=== PATIENT | male | born 1950 | race Caucasian/White ===

== ENCOUNTER 2021-11-29 00:15 | Day surgery (SDC) | payer MEDICARE, SELFPAY ==
[2021-11-14 13:18] VITALS: BMI 25.9
[2021-11-29 08:32] VITALS: BP 169/90; PULSE 81; RESP 18; TEMP 36.1; O2SAT 98; BMI 25.9
--- NOTE | 2021-11-29 08:36 | WPDGICN ---
Assessment and Plan Assessment and plan (1) Dysphagia: Code(s): R13.10 - Dysphagia, unspecified Status: Acute Assessment and Plan: Patient is had dysphagia his history sounds as though he had a brief food impaction. He does complain of a min heartburn suggesting underlying acid reflux. Plan is for EGD to assess more thoroughly. Possible esophageal dilatation is discussed with patient. Further recommendations will be given after endoscopy. GI Consult Note Consult date/time: 11/29/21 08:36 Reason for consult: Dysphagia HPI: Jimbo Gray is a 71 year old male presents for EGD. Patient reports that 1 month ago he was eating chicken. It became stock in the low mid substernal area of the chest. He subsequently was unable to eat or swallow. In eventually regurgitated chicken. Patient has had no prior difficulties. On further questioning does notice sometimes peanut butter sandwiches will passed slowly through this area. Patient does notice intermittent heartburn. He has taken omeprazole off and on over the last 1 year. He states this is not a constant complaint. Only occurs intermittently. Review of Systems Review of Systems: Review of systems noncontributory. [facility] Past Medical History Medical History Cervical spondylosis Coronary artery disease involving [place] coronary artery of [place] heart Dyslipidemia Elevated PSA Erectile dysfunction History of coronary stenosis Seizures Skin cancer (~2009) Surgical History Surgical History History of coronary artery stent placement 2009 History of left inguinal hernia repair 2015 Family History Family History Mother Family history of cardiac disorder Father Family history of coronary artery disease Family history of cardiovascular disease Grandparent Family history of cardiovascular disease Social History Social History Smoking status: Never smoker Alcohol intake: current Substance use: never Substance use type: does not use Living arrangements: with family Additional living arrangements comments: Gender identity (if verbalized by the patient): Male Sexual Orientation (if Verbalized by the Patient): Straight or Heterosexual Spiritual care concerns: No Meds Home Medications and Allergies Home Medications Medication Instructions Recorded Confirmed Type aspirin 81 mg capsule 81 mg PO DAILY 02/28/21 11/14/21 History atorvastatin 40 mg tablet 40 mg PO QHS #90 tabs 06/23/21 11/14/21 Rx cholecalciferol (vitamin D3) 1,250 1,250 mcg PO WEEKLY #12 caps 08/08/21 11/14/21 Rx mcg (50,000 unit) capsule levetiracetam 500 mg tablet 500 mg PO BID 10/25/21 11/14/21 History albuterol sulfate 90 mcg/actuation 2 puff inhalation Q4H PRN 10/31/21 11/14/21 Rx aerosol inhaler shortness of breath or wheezing #8.5 grams sildenafil 100 mg tablet 100 mg PO .PRN #10 tabs 11/21/21 11/29/21 Rx omeprazole 40 mg capsule,delayed 40 mg PO DAILY PRN Heartburn #30 11/22/21 11/29/21 Rx release caps Allergies Allergy/AdvReac Type Severity Reaction Status Date / Time No Known Allergies Allergy Unknown Verified 11/14/21 13:16 Vital Signs Vital Signs - 24 hr 11/29/21 08:32 Temperature 97 F L Pulse Rate 81 Respiratory Rate 18 Blood Pressure 169/90 H Pulse Oximetry 98 Oxygen Delivery Room Air Exam Narrative: Physical exam reveals patient to be alert. Vital signs stable. HEENT exam is unremarkable. Patient is anicteric. Lungs are clear to auscultation and percussion. Heart is without murmur or extra sounds. Abdominal exam bowel sounds are present soft nontender with no organomegaly.
[2021-11-29] MEDS: LACTATED RINGERS 1,000 ML 150 ML IV CONT (08:40)
--- NOTE | 2021-11-29 09:10 | WPDANESEPPF ---
Anes - Initial Pre Proc Eval Procedure: Operation Date: 11/29/21 09:30 Proposed Procedures p Esophagogastroduodenoscopy - Ge Cantu MD Date/Time: 11/29/21 09:10 Surgeon: Ge Cantu MD Pre Op Diagnosis: dysphagia Patient Data Age: 71 Gender: M Height: 1.68 m Weight: 72.9 kg Last Vital Signs Temp 36.1 C L 11/29/21 08:32 Pulse 81 11/29/21 08:32 Resp 18 11/29/21 08:32 BP 169/90 H 11/29/21 08:32 Pulse Ox 98 11/29/21 08:32 O2 Del Method Room Air 11/29/21 08:32 Allergies Allergy/AdvReac Type Severity Reaction Status Date / Time No Known Allergies Allergy Unknown Verified 11/14/21 13:16 Home Medications Medication Instructions Recorded Confirmed Type aspirin 81 mg capsule 81 mg PO DAILY 02/28/21 11/14/21 History atorvastatin 40 mg tablet 40 mg PO QHS #90 tabs 06/23/21 11/14/21 Rx cholecalciferol (vitamin D3) 1,250 1,250 mcg PO WEEKLY #12 caps 08/08/21 11/14/21 Rx mcg (50,000 unit) capsule levetiracetam 500 mg tablet 500 mg PO BID 10/25/21 11/14/21 History albuterol sulfate 90 mcg/actuation 2 puff inhalation Q4H PRN 10/31/21 11/14/21 Rx aerosol inhaler shortness of breath or wheezing #8.5 grams sildenafil 100 mg tablet 100 mg PO .PRN #10 tabs 11/21/21 11/29/21 Rx omeprazole 40 mg capsule,delayed 40 mg PO DAILY PRN Heartburn #30 11/22/21 11/29/21 Rx release caps Patient hx anesthesia problems: none Family hx anesthesia problems: none Results Review: All pre-operative results and documents have been reviewed as part of the pre-operative evaluation. [facility] Past Medical History Medical History Cervical spondylosis Coronary artery disease involving [place] coronary artery of [place] heart Dyslipidemia Elevated PSA Erectile dysfunction History of coronary stenosis Seizures Skin cancer (~2009) Surgical History Surgical History History of coronary artery stent placement 2010 History of left inguinal hernia repair 2016 Family History Family History Mother Family history of cardiac disorder Father Family history of coronary artery disease Family history of cardiovascular disease Grandparent Family history of cardiovascular disease Social History Social History Smoking status: Never smoker Alcohol intake: current Substance use: never Substance use type: does not use Living arrangements: with family Additional living arrangements comments: Gender identity (if verbalized by the patient): Male Sexual Orientation (if Verbalized by the Patient): Straight or Heterosexual Spiritual care concerns: No Anes - Eval Final PreProcedure Day of Procedure 11/29/21 09:10 Patient weight: overweight Heart: regular rate and rhythm Lungs: clear to auscultation Airway: Mallampati scale class II Neurological: alert and oriented Last oral intake: >/= 8 hours ASA classification: III Emergent: no Anesthetic plan: proceed Anesthesia type and monitoring: general GIVS and standard monitoring Results Review: All pre-operative results and documents have been reviewed as part of the pre-operative evaluation. Informed Consent: The patient's anesthetic plan and its attendant risks and benefits were discussed with the patient/family/POA. Questions were solicited and answers provided to the satisfaction of the patient/family/POA.
[2021-11-29] MEDS: BENZOCAINE (*SP) 60 ML SPRAY CAN (HURRICAINE) 1 SPRAY MUCOUS MEM (10:00)
[2021-11-29 10:16] VITALS: BP 138/86; PULSE 74; RESP 20; O2SAT 99
[2021-11-29 10:26] VITALS: BP 147/88; PULSE 73; RESP 20; O2SAT 100
[2021-11-29 10:36] VITALS: BP 142/79; PULSE 68; RESP 22; O2SAT 100
== END 2021-11-29 10:46 | disposition home or self-care (01) ==
PROVIDERS: PCP Family Medicine; Visit Provider Internal Medicine Gastroenterology
PROC: 0DJ08ZZ Inspection of Upper Intestinal Tract, Via Natural or Artificial Opening Endoscopic (ICD-10-PCS; CPT 43235; principal; 2021-11-29 09:30)
DX: R13.19 Other dysphagia (principal); K44.9 Diaphragmatic hernia without obstruction or gangrene; I25.10 Atherosclerotic heart disease of native coronary artery without angina pectoris; Q39.4 Esophageal web; Z79.82 Long term (current) use of aspirin; Z79.51 Long term (current) use of inhaled steroids; M47.812 Spondylosis without myelopathy or radiculopathy, cervical region; I25.118 Atherosclerotic heart disease of native coronary artery with other forms of angina pectoris; E78.5 Hyperlipidemia, unspecified; R97.20 Elevated prostate specific antigen [PSA]; N52.9 Male erectile dysfunction, unspecified; Z85.828 Personal history of other malignant neoplasm of skin
CPT/HCPCS: 43249; C1726; J2704; J7120

== ENCOUNTER 2022-01-17 04:46 | Observation (INO) | payer MEDICARE, SELFPAY ==
--- NOTE | ~2022-01-17 | XR_ITS ---
XR abdomen/kub 1V 01/19/2022 11:08 INDICATION: Perforated small bowel diverticulitis. TECHNIQUE: KUB COMPARISON: None FINDINGS: Bowel gas pattern is normal. There is no evidence of free air, mass, organomegaly, ascites or obstruction. There is a calcification in the left mid abdomen, suspicious for renal stone. The tesfaye fer appear intact. IMPRESSION: 1: Possible left nephrolithiasis.. Reviewed, dictated and finalized at location L.
--- NOTE | ~2022-01-17 | XR_ITS ---
EXAMINATION: XR abdomen/kub 1V DATE: 01/18/2022 06:09 INDICATION: Ileus versus small bowel obstruction TECHNIQUE: A supine view of the abdomen on 2 radiographs was obtained. COMPARISON: CT abdomen and pelvis dated 01/17/2022 FINDINGS: Small amount of gas in the proximal colon. No dilated loops of gas-filled bowel to suggest obstructio n. Moderate sized hiatal hernia. IMPRESSION: 1. Nonspecific nonobstructive bowel gas pattern. Reviewed, dictated and finalized at location A.
--- NOTE | ~2022-01-17 | CT_ITS ---
EXAMINATION: CT abdomen pelvis w con DATE: 01/17/2022 06:05 INDICATION: Left abdominal pain and bloating. Constipation. TECHNIQUE: Computed tomography (CT) of the abdomen and pelvis was performed with 100 mL Omnipaque-300 intravenous contrast. Automated exposure control and iterative reconstruction technique were employe d. The dose-length product was 538.61 mGy-cm. COMPARISON: None FINDINGS: Mild elevation the left hemidiaphragm. Mild compressive atelectasis in the bilateral lower lobes manfred g side a moderate-sized sliding-type hiatal hernia. Heart size is normal. Atherosclerotic coronary ar sandra calcific location. No pericardial or pleural effusion. Liver, gallbladder, spleen, pancreas and right adrenal gland are normal. 1.8 cm left adrenal nodule with relatively low density for postcontra st imaging most likely adenoma. Bilateral renal cysts the largest on the left measuring 5 cm. Moderat e scattered diverticulosis of both the large and small bowel with sigmoid colon predominance. There i s minimal inflammatory stranding and several tiny foci of mesenteric gas surrounding a small bowel di verticulum in the left abdomen consistent with diverticulitis. No abscess or more remote free intrape ritoneal gas. Normal appendix. Marked prostatomegaly measuring 6.0 x 5.1 cm. Bladder is normal. No as cites or pathologically enlarged lymphadenopathy. Schmorl's node and a hemangioma at L3. IMPRESSION: 1. Large and small bowel diverticulosis with left upper quadrant small bowel diverticulitis including a small amount of localized gas in the mesentery consistent with microperforation. No abscess. 2. Moderate-sized sliding-type hiatal hernia. 3. Marked prostatomegaly. Reviewed, dictated and finalized at location A. IMPRESSION: 1. Large and small bowel diverticulosis with left upper quadrant small bowel di verticulitis including a small amount of localized gas in the mesentery consist ent with microperforation. No abscess. 2. Moderate-sized sliding-type hiatal hernia. 3. Marked prostatomegaly.
[2022-01-17 04:50] VITALS: BP 144/94; PULSE 88; RESP 18; TEMP 36.7; O2SAT 99
[2022-01-17] MEDS: ONDANSETRON INJ 4 MG/2 ML VIAL IV PUSH (05:14)
[2022-01-17] MEDS: SODIUM CHLORIDE 0.9% IV 1,000 ML 999 ML IV CONT (05:14)
--- NOTE | 2022-01-17 05:20 | ED.GENADULT ---
HPI - General Adult General Chief complaint: Abdominal Pain Stated complaint: abd pain Time Seen by Provider: 01/17/22 05:00 History of Present Illness HPI narrative: Patient is 71-year-old gentleman who presents to the emergency department with chief complaint of abdominal pain. Patient reports that he ate a ham and cheese sandwich and afterwards started having discomfort throughout his abdomen the patient reports has not had a bowel movement since then and reports that has not been passing gas. The patient reports that nauseated and feels as though his abdomen is distended. Patient reports no prior abdominal surgery history. Related Data Home Medications Medication Instructions Recorded Confirmed aspirin 81 mg capsule 81 mg PO DAILY 02/28/21 11/14/21 levetiracetam 500 mg tablet 500 mg PO BID 10/25/21 11/14/21 Allergies Allergy/AdvReac Type Severity Reaction Status Date / Time No Known Allergies Allergy Unknown Verified 01/17/22 04:55 Review of Systems Review of Systems: A 10 system review of systems was completed on the patient and is negative except for what is stated in the HPI. Nursing and ancillary documentation was reviewed. PMFSH Past Medical History Medical History Cervical spondylosis Coronary artery disease involving [place] coronary artery of [place] heart Dyslipidemia Elevated PSA Erectile dysfunction History of coronary stenosis Seizures Skin cancer (~2009) Surgical History Surgical History History of coronary artery stent placement 2009 History of left inguinal hernia repair 2016 Family History Family History Mother Family history of cardiac disorder Father Family history of coronary artery disease Family history of cardiovascular disease Grandparent Family history of cardiovascular disease Social History Social History Smoking status: Never smoker Alcohol intake: current Substance use: never Substance use type: does not use Additional living arrangements comments: Gender identity (if verbalized by the patient): Male Sexual Orientation (if Verbalized by the Patient): Straight or Heterosexual Spiritual care concerns: No Exam Narrative: GENERAL: Well-appearing, well-nourished, and in no acute distress. HEAD: Normocephalic, atraumatic. EYES: PERRLA and EOMI. ENT: Nares clear, no rhinorrhea or epistaxis. Mucous membranes moist. NECK: Supple. CHEST: Clear to auscultation. No respiratory distress. HEART: Regular rate and rhythm. No murmur heard. Normal peripheral pulses. ABDOMEN: Soft, diffusely tender to palpation, nondistended, normal active bowel sounds. EXTREMITIES: Normal range of motion. No edema. SKIN: Warm, dry, no rash. NEURO: No focal deficits. Alert and oriented x3. PSYCH: Normal mood and affect. Course Vital Signs Vital signs: Vital Signs Temperature 36.7 C 01/17/22 04:50 Pulse Rate 88 01/17/22 04:50 Respiratory Rate 18 01/17/22 04:50 Blood Pressure 144/94 H 01/17/22 04:50 Pulse Oximetry 99 01/17/22 04:50 Oxygen Delivery Room Air 01/17/22 04:50 Temperature 36.7 C 01/17/22 04:50 Pulse Rate 88 01/17/22 04:50 Respiratory Rate 18 01/17/22 04:50 Blood Pressure 144/94 H 01/17/22 04:50 Pulse Oximetry 99 01/17/22 04:50 Oxygen Delivery Room Air 01/17/22 04:50 Medical Decision Making Vital Signs Vital Signs: Vital Signs Temperature 36.7 C 01/17/22 04:50 Pulse Rate 88 01/17/22 04:50 Respiratory Rate 01/17/22 04:50 Blood Pressure 144/94 H 01/17/22 04:50 Pulse Oximetry 99 01/17/22 04:50 Oxygen Delivery Room Air 01/17/22 04:50 Temperature 36.7 C 01/17/22 04:50 Pulse Rate 88 01/17/22 04:50 Respiratory Rate
[2022-01-17 05:21] LABS: Basophils Percent Auto 0.3 % (0.2-1.2); Eosinophils Absolute Auto 0.1 K/mm3 (0-0.3); Eosinophils Percent Auto 0.6 % (0-4.4); Hematocrit 49.9 % (42.0-52.0); Hemoglobin 16.7 g/dL (14.0-18.0); Immature Granulocyte Absolute 0.02 K/mm3 (0.00-0.031); Immature Granulocyte Percent A 0.3 % (0-0.5); Lymphocytes Absolute Auto 1.55 K/mm3 (0.9-3.2); Lymphocytes Percent Auto 19.6 % (18.3-44.2); Mean Corpuscular HGB Conc 33.5 g/dl (32-36); Mean Corpuscular Hemoglobin 30.4 pg (26-34); Mean Corpuscular Volume 90.7 fl (80-100); Mean Platelet Volume 10.4 fl (7.4-10.4); Monocytes Absolute Auto 0.6 K/mm3 (0.1-0.6); Monocytes Percent Auto 7.2 % (2.6-8.5); Neutrophils Absolute Auto 5.7 K/mm3 (1.3-6.7); Platelet Count Result 165 k/mm3 (150-375); Red Cell Distribution Width 12.6 % (11.5-14.5); White Blood Count 7.9 K/mm3 (4.5-10.0)
[2022-01-17 05:22] LABS: Appearance Urine Clear (Clear); Bilirubin Urine Negative (Negative); Blood Urine Negative (Negative); Color Urine Yellow (Yellow); Glucose Urine UA Negative (Negative); Ketones Urine 1+ mg/dL (Negative); Leukocyte Esterase Ur Negative LEU/UL (Negative); Nitrate Urine Negative (Negative); Protein Urine Trace mg/dL (Negative); Specific Grav Ur 1.025 (1.001-1.035); Urobilinogen Urine 0.2 mg/dL (<2.0); pH Urine 5.5 (5.0-9.0)
[2022-01-17 05:30] LABS: Mucus Urine Few /lpf; RBC Urine 0-2 /hpf (0-2); WBC Urine 0-3 /hpf
[2022-01-17 05:32] LABS: Alanine Aminotransferase 35 U/L (6-50); Albumin Level 4.6 g/dL (3.5-5.1); Alkaline Phosphatase 95 U/L (38-126); Anion Gap 8 mmol/L (8-16); Aspartate Amino Transferase 39 U/L (17-59); Bilirubin,Total 0.6 mg/dL (0.2-1.3); Blood Urea Nitrogen 11 mg/dL (9-20); Calcium 8.5 mg/dL (8.4-10.2); Carbon Dioxide 27 mmol/L (22-30); Chloride 102 mmol/L (98-107); Estimated CRCL calculation 62 ml/min; Estimated Glomerular Filt Rate > 60; Glucose 108 mg/dL (65-110); Lipase 152 U/L (23-300); Magnesium 1.6 mg/dL (1.6-2.3); Potassium 4.2 mmol/L (3.4-5.0); Sodium 137 mmol/L (137-145)
[2022-01-17 05:34] LABS: Add Urine Microscopic? YES
[2022-01-17 06:09] LABS: Lactic Acid Reflex 0.8 mmol/L (0.7-2.0)
[2022-01-17] MEDS: MORPHINE SULFATE (*CRX) 4 MG/ML INJ IV PUSH (08:22)
--- NOTE | 2022-01-17 08:42 | PC.NURSE ---
report received from [facility] nurse
[2022-01-17] MEDS: LACTATED RINGERS 1,000 ML 125 ML IV CONT (09:00)
[2022-01-17 09:03] VITALS: BP 155/94; PULSE 84; RESP 19; TEMP 36.4; O2SAT 97
[2022-01-17 09:04] VITALS: BP 155/94; PULSE 84; RESP 19; TEMP 36.4; O2SAT 97
[2022-01-17] MEDS: ACETAMINOPHEN 325 MG TABLET 650 MG PO ×2 (09:33→14:11)
--- NOTE | 2022-01-17 11:40 | PM.CNGS ---
Assessment and Plan Assessment and plan (1) Diverticulitis of small intestine with perforation without abscess or bleeding: Code(s): K57.00 - Diverticulitis of small intestine with perforation and abscess without bleeding Status: Acute Assessment and Plan: CT scan reviewed and discussed with the patient in detail. He has evidence of diverticulosis in both the small and large bowel, but there is an area of small bowel diverticulitis in the left upper quadrant with what appears to be a localized microperforation. WBC normal. He is already showing signs of clinical improvement. No peritoneal signs. We would recommend to continue with conservative treatment at this time and close monitoring. Agree with continuing IV Zosyn, IV fluids, and analgesics as needed. Will start him on a clear liquid diet. Will plan to slowly advanced his diet as tolerated to eventually a low-fiber diet. Continue to monitor with serial abdominal exams and imaging. Repeat KUB and labs tomorrow morning. (2) Seizures: Code(s): R56.9 - Unspecified convulsions Status: Acute Assessment and Plan: Follows with neurology and taking Keppra. (3) Coronary artery disease involving [place] coronary artery of [place] heart: Qualifiers: Associated angina: without angina Qualified Code(s): I25.10 - Atherosclerotic heart disease of [place] coronary artery without angina pectoris Code(s): I25.10 - Atherosclerotic heart disease of [place] coronary artery without angina pectoris Status: Acute Assessment and Plan: Remote history of coronary artery stents. (4) Elevated PSA: Code(s): R97.20 - Elevated prostate specific antigen [PSA] Status: Acute Assessment and Plan: Has been followed by Urology for years. Reportedly has a follow-up appointment with Dr. Dc in the near future. PSA repeated from ER and pending. (5) Enlarged prostate: Code(s): N40.0 - Benign prostatic hyperplasia without lower urinary tract symptoms Status: Acute Assessment and Plan: He reports not having any known history of prostate cancer, but Urology has been following his elevated PSA for years. Plan I have discussed the patient's case and plan of care with Dr. An. Thank you for allowing us to see the patient in consultation and we will continue to follow along with you. History of Present Illness Consult details Consult date: 01/17/22 Reason for consult: other (Small-bowel diverticulitis with microperforation) Requesting physician: Tania Dumont MD Narrative: This is a 71-year-old male with a history of coronary artery disease, hiatal hernia, seizures, and prostatomegaly with elevated PSAs, who presented to the emergency department overnight with complaints of left-sided abdominal pain. He reports feeling in his normal state of health up until yesterday after eating a ham and cheese sandwich for lunch. He began feeling bloated with some discomfort in the epigastric and left upper quadrant area. He reports just feeling full. Denies any nausea or vomiting. He then had a slice of pizza and a beer for dinner, and after eating he reports feeling like he was not digesting his food well. He felt that his bloating worsened. Still no nausea. After dinner, he began noticing left-sided abdominal pain that continued to worsen throughout the evening. He did feel chilled and took his temperature, which was 100.1? F. He then took ibuprofen. He denies ever having this pain in the past. Without any relief in his pain, he decided to come into the ER for further evaluation. Labs were unremarkable. CT scan of the abdomen and pelvis showed small and large bowel diverticulosis with an area of small bowel diverticulitis in the LUQ with localized microperforation. No evidence an abscess. The patient has been admitted in this setting. Our service has been consulted for small bowel diverticulitis with perforati
[2022-01-17] MEDS: LACTATED RINGERS 1,000 ML 100 ML IV CONT ×2 (11:42→20:28)
--- NOTE | 2022-01-17 11:43 | ECG_ITS ---
Measurements Intervals [place] Rate: 79 P: 33 KS: 163 QRS: 52 QRSD: 90 T: 48 QT: 343 QTc: 394 Interpretive Statements SINUS RHYTHM EARLY PRECORDIAL R/S TRANSITION T WAVE ABNORMALITY IN ANTERIOR LEADS- CONSIDER ISCHEMIA ABNORMAL ECG Electronically Signed On 01-17-2022 15:33:41 CDT by Harsh Wing D.O.
--- NOTE | 2022-01-17 13:37 | PM.IMHP ---
H&P: HPI History of Present Illness Date/Time: 01/17/22 13:37 Chief Complaint: Patient is 71-year-old gentleman who presents to the emergency department with chief complaint of abdominal pain.? Patient reports that he ate a ham and cheese sandwich and afterwards started having discomfort throughout his abdomen the patient reports has not had a bowel movement since then and reports that has not been passing gas.? The patient reports that nauseated and feels as though his abdomen is distended.? Patient reports no prior abdominal surgery history. Review of Systems Review of Systems: 10 point ROS negative except as stated in HPI / Subjective PMFSH Past Medical History Medical History Cervical spondylosis Coronary artery disease involving [place] coronary artery of [place] heart Dyslipidemia Elevated PSA Erectile dysfunction History of coronary stenosis Seizures Skin cancer (~2009) Surgical History Surgical History History of coronary artery stent placement 2009 History of left inguinal hernia repair 2015 Family History Family History Mother Family history of cardiac disorder Father Family history of coronary artery disease Family history of cardiovascular disease Grandparent Family history of cardiovascular disease Social History Social History Smoking status: Never smoker Alcohol intake: never Substance use: never Substance use type: does not use Additional living arrangements comments: Gender identity (if verbalized by the patient): Male Sexual Orientation (if Verbalized by the Patient): Straight or Heterosexual Spiritual care concerns: No Meds Home Medications and Allergies Home Medications Medication Instructions Recorded Confirmed Type aspirin 81 mg capsule 81 mg PO DAILY 02/28/21 01/17/22 History cholecalciferol (vitamin D3) 1,250 1,250 mcg PO WEEKLY #12 caps 08/08/21 01/17/22 Rx mcg (50,000 unit) capsule levetiracetam 500 mg tablet 500 mg PO BID 10/25/21 01/17/22 History albuterol sulfate 90 mcg/actuation 2 puff inhalation Q4H PRN 10/31/21 01/17/22 Rx aerosol inhaler shortness of breath or wheezing #8.5 grams sildenafil 100 mg tablet 100 mg PO .PRN #10 tabs 11/21/21 01/17/22 Rx omeprazole 40 mg capsule,delayed 40 mg PO DAILY PRN Heartburn #30 11/22/21 01/17/22 Rx release caps atorvastatin 40 mg tablet 40 mg PO QHS #90 tabs 12/26/21 01/17/22 Rx Allergies Allergy/AdvReac Type Severity Reaction Status Date / Time No Known Allergies Allergy Unknown Verified 01/17/22 04:55 Vital Signs Vital Signs - 24 hr 01/17/22 04:50 01/17/22 09:03 01/17/22 09:04 Temperature 98.0 F 97.6 F 97.6 F Pulse Rate 88 84 84 Respiratory Rate 18 19 19 Blood Pressure 144/94 H 155/94 H 155/94 H Pulse Oximetry 99 97 97 Oxygen Delivery Room Air H&P: Results Labs Labs: Short CBC 01/17/22 Range/Units 05:15 WBC 7.9 (4.5-10.0) K/mm3 Hgb 16.7 (14.0-18.0) g/dL Hct 49.9 (42.0-52.0) % Plt Count 165 (150-375) k/mm3 BMP 01/17/22 05:15 Sodium 137 Potassium 4.2 Chloride 102 Carbon Dioxide 27 BUN 11 Creatinine 0.80 Glucose 108 Calcium 8.5 Liver Function 01/17/22 Range/Units 05:15 Total Bilirubin 0.6 (0.2-1.3) mg/dL AST 39 (17-59) U/L ALT 35 (6-50) U/L Alkaline Phosphatase 95 (38-126) U/L Albumin 4.6 (3.5-5.1) g/dL Urine 01/17/22 Range/Units 05:15 Urine Color Yellow (Yellow) Urine Appearance Clear (Clear) Urine pH 5.5 (5.0-9.0) Ur Specific [place] 1.025 (1.001-1.035) Urine Protein Trace (Negative) mg/dL Urine Glucose (UA) Negative (Negative) mg/dL Assessment and Plan Assessment and plan (1) Diverticulitis large intestine: Code(s): K57.3
[2022-01-17 14:00] VITALS: BP 125/75; PULSE 65; RESP 19; TEMP 36.1; O2SAT 100
[2022-01-17] MEDS: PANTOPRAZOLE 40 MG TABLET PO (15:43)
[2022-01-17] MEDS: levETIRAcetam 500 MG TABLET PO (16:01)
--- NOTE | 2022-01-17 16:38 | PC.NURSE ---
This patient, Jimbo Gray, was admitted to [facility] Surg Room 320-01 at 850 am. Patient/family oriented to hospital policies and general routines including ID bracelet, bed and alarms, visiting hours, pain management, procedures, bathroom and other care routines, personal items, smoking policy, room service/diet, and visiting hours. Information on how to activate the Rapid Response Team has been discussed. Patient/Family are encouraged to report perceived risks to care and to ask questions if they do not understand what they are told or what they should do.
[2022-01-17 17:47] LABS: Prostate Specific Antigen 5.1 ng/mL (< OR = 4.0)
[2022-01-17] MEDS: ATORVASTATIN 40 MG TABLET PO (20:28)
[2022-01-17 22:00] VITALS: BP 146/84; PULSE 86; RESP 18; TEMP 36.9; O2SAT 95
[2022-01-18] MEDS: ACETAMINOPHEN 325 MG TABLET 650 MG PO ×6 (00:47→23:52)
[2022-01-18 05:52] VITALS: BP 128/82; PULSE 78; RESP 18; TEMP 36.9; O2SAT 94
[2022-01-18] MEDS: LACTATED RINGERS 1,000 ML 100 ML IV CONT (05:54)
[2022-01-18 07:09] LABS: Hematocrit 43.3 % (42.0-52.0); Hemoglobin 14.7 g/dL (14.0-18.0); Mean Corpuscular HGB Conc 33.9 g/dl (32-36); Mean Corpuscular Hemoglobin 30.9 pg (26-34); Mean Corpuscular Volume 91.2 fl (80-100); Mean Platelet Volume 10.4 fl (7.4-10.4); Platelet Count Result 130 k/mm3 (150-375); Red Blood Count 4.75 M/mm3 (4.6-6.20); Red Cell Distribution Width 12.8 % (11.5-14.5); White Blood Count 12.5 K/mm3 (4.5-10.0)
[2022-01-18 07:17] LABS: Anion Gap 5 mmol/L (8-16); Blood Urea Nitrogen 7 mg/dL (9-20); Calcium 7.6 mg/dL (8.4-10.2); Carbon Dioxide 27 mmol/L (22-30); Chloride 101 mmol/L (98-107); Estimated CRCL calculation 81 ml/min; Estimated Glomerular Filt Rate > 60; Glucose 113 mg/dL (65-110); Potassium 3.6 mmol/L (3.4-5.0); Sodium 133 mmol/L (137-145)
[2022-01-18] MEDS: ASPIRIN 81 MG CHEWABLE TABLET PO (08:55)
[2022-01-18] MEDS: levETIRAcetam 500 MG TABLET PO ×2 (08:55→17:33)
[2022-01-18] MEDS: ONDANSETRON INJ 4 MG/2 ML VIAL IV PUSH (08:56)
[2022-01-18 14:00] VITALS: BP 141/87; PULSE 88; RESP 20; TEMP 36.1; O2SAT 96
--- NOTE | 2022-01-18 16:49 | PM.PNGS ---
Progress Note: A&P Assessment and Plan (1) Diverticulitis of small intestine with perforation without abscess or bleeding: Code(s): K57.00 - Diverticulitis of small intestine with perforation and abscess without bleeding Status: Acute Assessment and Plan: Continues to clinically improve. We will advance to full liquids. Stop IV fluids. Repeat labs tomorrow. Will also consult the dietitian to come educate the patient on a low fiber diet. Encouraged ambulating in the halls. (2) Seizures: Code(s): R56.9 - Unspecified convulsions Status: Acute (3) Coronary artery disease involving [place] coronary artery of [place] heart: Qualifiers: Associated angina: without angina Qualified Code(s): I25.10 - Atherosclerotic heart disease of [place] coronary artery without angina pectoris Code(s): I25.10 - Atherosclerotic heart disease of [place] coronary artery without angina pectoris Status: Acute (4) Elevated PSA: Code(s): R97.20 - Elevated prostate specific antigen [PSA] Status: Acute (5) Enlarged prostate: Code(s): N40.0 - Benign prostatic hyperplasia without lower urinary tract symptoms Status: Acute Plan I have discussed the patient's case and plan of care with Dr. An. Subjective Subjective Date/Time Seen: 01/18/22 16:49 Patient reports: no new complaints, feels better, tolerating liquids well, flatus, bowel movement and afebrile Interval history: Patient seen and examined. He reports feeling much better today. 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 Denies any nausea or vomiting. Tolerating clear liquids. He has walked the halls and is tolerating activity well. Review of Systems Review of Systems: All systems reviewed & are unremarkable except as noted in HPI and below Exam Const: General: comfortable and no acute distress Orientation/consciousness: patient oriented x3 GI: Inspection: non-distended GI Palp: Yes Soft to palpation, Yes Tenderness to palpation present (GI) (Left upper quadrant and left lower quadrant), No Guarding due to palpation present (GI), Yes No hepatosplenomegaly present and No Rebound tenderness present Auscultation: normal bowel sounds Extrem: General: normal to inspection and no edema Psych: Mental Status: mental status grossly normal Objective Data Vital Signs Vital Signs: Vital Signs - 24 hr 01/17/22 22:00 01/18/22 05:52 01/18/22 09:30 Temperature 98.4 F 98.4 F Pulse Rate 86 78 Respiratory Rate 18 18 Blood Pressure 146/84 H 128/82 Pulse Oximetry 95 94 Oxygen Delivery Room Air 01/18/22 14:00 Temperature 96.9 F L Pulse Rate 88 Respiratory Rate 20 Blood Pressure 141/87 H Pulse Oximetry 96 Oxygen Delivery Intake/Output Intake/Output: Intake & Output 01/15/22 01/16/22 01/17/22 01/18/22 23:59 23:59 23:59 23:59 Intake Total 2730 1979 Balance 2730 1979 Meds/Results Medications: Active Medications Generic Name Dose Route Start Last Admin Trade Name Freq PRN Reason Stop Dose Admin Acetaminophen 650 mg 01/17/22 07:54 01/18/22 15:16 Acetaminophen 325 Mg Tablet PO 650 mg Q4H PRN Administration Mild Pain (1-3) or Fever Albuterol 2 puff 01/17/22 13:40 Albuterol Sulfate (*Sp) Aerosol 1 Puff INHALATION Q4H PRN shortness of breath or wheezing Aspirin 81 mg 01/18/22 09:00 01/18/22 08:55 Aspirin 81 Mg Chewable Tablet PO 81 mg DAILY ALICIA Administration Atorvastatin Calcium 40 mg 01/17/22 21:00 01/17/22 20:28 Atorvastatin 40 Mg Tablet PO 40 mg HS ALICIA Administration Ergocalciferol 50,000 unit 01/26/22 09:00 Ergocalciferol 50,000 Unit Capsule PO Th@0900 ALICIA Piperacillin/Tazobactam/Dextrose 3.375 gm in 50 mls @ 100 mls/hr 01/17/22 13:00 01/18/22 12:40 Zosyn 3.375 Gm/D5w 50ml Pm IVPB Infused Q6HR ALICIA Infusion Lactated Ringer's 1,000 mls @ 50 mls/hr 01/17/22 07:5
--- NOTE | 2022-01-18 17:07 | PM.IMPN ---
Progress Note: A&P Assessment and Plan (1) Diverticulitis large intestine: Code(s): K57.32 - Diverticulitis of large intestine without perforation or abscess without bleeding Status: Deleted Assessment and Plan: - General surgery consulted and appreciate recommendations. - Continue conservative management with bowel rest, IV fluids and IV Zosyn. Antibiotic day 2. - Pain control with IV/PO medications PRN. (2) Epigastric pain: Code(s): R10.13 - Epigastric pain Status: Acute Assessment and Plan: -As above. -Continue PPI. (3) Dyslipidemia: Code(s): E78.5 - Hyperlipidemia, unspecified Status: Chronic Assessment and Plan: - Continue home meds (4) Coronary artery disease involving [place] coronary artery of [place] heart: Qualifiers: Associated angina: without angina Qualified Code(s): I25.10 - Atherosclerotic heart disease of [place] coronary artery without angina pectoris Code(s): I25.10 - Atherosclerotic heart disease of [place] coronary artery without angina pectoris Status: Acute Assessment and Plan: -Continue home meds. -Stable. (5) Elevated PSA: Code(s): R97.20 - Elevated prostate specific antigen [PSA] Status: Chronic Assessment and Plan: PSA 5.1. Reportedly chronically elevated and monitored by outpatient provider. -continue to monitor UOP. Plan CODE STATUS: FULL CODE Disposition: Home when tolerating regular diet. Time Spent With Patient Time with patient: 15 - 25 minutes Subjective Date/time seen: 01/18/22 17:07 Interval history: Patient is 71 yo male with medical history of CAD s/p cardiac stents and seizures. He presented to the ED for evaluation of abdominal pain and was found to have large and small bowel diverticulosis with LUQ small bowel diverticulitis with microperforation. Patient reports his pain waxes and wanes, but is significantly more improved since admission. He denies nausea, vomiting and his stool is loose, but slowing. Review of Systems Review of Systems: All systems reviewed & are unremarkable except as noted in HPI and below Exam Narrative: General: No acute distress.? Well-developed older adult male sitting up in bed. Mental Status/Psych: Awake, alert and oriented to person and place with clear speech. Neutral mood and affect. Pleasant and cooperative. Skin: fair, warm, dry and intact without rashes or lesions. No open wounds. Fair turgor.? HEENT: Normocephalic. Conjunctivae are clear. Sclera is non-icteric. EOM intact. PERRL. Grossly normal hearing. Neck: Supple. No JVD. Heart: S1 and S2 regular rate and rhythm. No murmurs, gallops, or rubs auscultated. Chest: Respirations even and unlabored. Lung sounds are clear to auscultation in all lobes bilaterally without wheezes, rhonchi, or rales. Abdomen: Soft, round and mild tenderness to palpation LUQ.? Bowel sounds present in all 4 quadrants. Extremities:? Grossly normal ROM all extremities. No edema. Radial and dorsalis pedis pulses +2 bilaterally. Neurological: No focal deficits. Cranial nerves 2-12 grossly intact.? Objective Data Vital Signs Vital Signs: Vital Signs - 24 hr 01/17/22 22:00 01/18/22 05:52 01/18/22 09:30 Temperature 98.4 F 98.4 F Pulse Rate 86 78 Respiratory Rate 18 18 Blood Pressure 146/84 H 128/82 Pulse Oximetry 95 94 Oxygen Delivery Room Air 01/18/22 14:00 Temperature 96.9 F L Pulse Rate 88 Respiratory Rate 20 Blood Pressure 141/87 H Pulse Oximetry 96 Oxygen Delivery Intake/Output Intake/Output: Intake & Output 01/15/22 01/16/22 01/17/22 01/18/22 23:59 23:59 23:59 23:59 Intake Total 2730 1979 Balance 2730 1979 Meds/Results Medications: Active Medications Generic Name Dose Route Start Last Admin Trade Name Freq PRN Reason Stop Dose Admin Acetaminophen 650 mg 01/17/22 07:54 01/18/22 15:16 Acetaminophen 325 Mg Tablet PO
[2022-01-18 17:30] VITALS: O2SAT 95
[2022-01-18] MEDS: ATORVASTATIN 40 MG TABLET PO (21:09)
[2022-01-18 22:00] VITALS: BP 134/79; PULSE 77; RESP 18; TEMP 36.9; O2SAT 94
[2022-01-19 06:00] VITALS: BP 133/81; PULSE 81; RESP 18; TEMP 37.3; O2SAT 92
[2022-01-19] MEDS: ACETAMINOPHEN 325 MG TABLET 650 MG PO (06:20)
[2022-01-19 06:26] LABS: Hematocrit 42.7 % (42.0-52.0); Hemoglobin 14.9 g/dL (14.0-18.0); Immature Platelet Fraction Pct 6.6 % (0.9-11.2); Mean Corpuscular HGB Conc 34.9 g/dl (32-36); Mean Corpuscular Volume 88.8 fl (80-100); Mean Platelet Volume 10.6 fl (7.4-10.4); Platelet Count Result 119 k/mm3 (150-375); Red Blood Count 4.81 M/mm3 (4.6-6.20); Red Cell Distribution Width 12.7 % (11.5-14.5); White Blood Count 12.8 K/mm3 (4.5-10.0)
[2022-01-19 06:34] LABS: Anion Gap 5 mmol/L (8-16); Blood Urea Nitrogen 5 mg/dL (9-20); Calcium 7.8 mg/dL (8.4-10.2); Carbon Dioxide 28 mmol/L (22-30); Chloride 103 mmol/L (98-107); Estimated CRCL calculation 81 ml/min; Estimated Glomerular Filt Rate > 60; Glucose 95 mg/dL (65-110); Potassium 3.4 mmol/L (3.4-5.0); Sodium 136 mmol/L (137-145)
[2022-01-19] MEDS: LACTATED RINGERS 1,000 ML 50 ML IV CONT (08:23)
[2022-01-19] MEDS: levETIRAcetam 500 MG TABLET PO (08:24)
[2022-01-19] MEDS: ASPIRIN 81 MG CHEWABLE TABLET PO (08:24)
--- NOTE | 2022-01-19 11:06 | PM.PNGS ---
Progress Note: A&P Assessment and Plan (1) Diverticulitis of small intestine with perforation without abscess or bleeding: Code(s): K57.00 - Diverticulitis of small intestine with perforation and abscess without bleeding Status: Acute Assessment and Plan: Clinically the patient is improving and is no longer having any abdominal pain. His WBC count has had a slight trend up to 12,800. He is afebrile. Will get a KUB to evaluate for a larger perforation or development of free air. If this is negative, then will advance to a low fiber diet for lunch. Okay to discharge later today if the patient continues to improve and his KUB is negative. Would recommend a total of 10 days of oral antibiotics, discussed this with the hospitalist. F/u with Dr. An in 2 weeks. Continue low fiber diet. (2) Seizures: Code(s): R56.9 - Unspecified convulsions Status: Acute (3) Coronary artery disease involving [place] coronary artery of [place] heart: Qualifiers: Associated angina: without angina Qualified Code(s): I25.10 - Atherosclerotic heart disease of [place] coronary artery without angina pectoris Code(s): I25.10 - Atherosclerotic heart disease of [place] coronary artery without angina pectoris Status: Acute (4) Elevated PSA: Code(s): R97.20 - Elevated prostate specific antigen [PSA] Status: Chronic (5) Enlarged prostate: Code(s): N40.0 - Benign prostatic hyperplasia without lower urinary tract symptoms Status: Acute Plan I have discussed the patient's case and plan of care with Dr. An. Subjective Subjective Date/Time Seen: 01/19/22 11:06 Patient reports: feels better, pain is less, tolerating liquids well, flatus, bowel movement (good formed BM this morning) and afebrile Interval history: Patient seen and examined. He reports feeling much better today. Denies any abdominal pain at this time. Still feels a little tenderness with movement, but much improved. Tolerating full liquids well without any nausea, vomiting, or bloating. No other complaints at this time. Review of Systems Review of Systems: All systems reviewed & are unremarkable except as noted in HPI and below Exam Const: General: comfortable, no acute distress and awake Orientation/consciousness: patient oriented x3 GI: Inspection: non-distended GI Palp: Yes Soft to palpation, Yes Tenderness to palpation present (GI) (very mild TTP in LUQ), No Guarding due to palpation present (GI) and No Rebound tenderness present Auscultation: normal bowel sounds Extrem: General: normal to inspection Psych: Mental Status: mental status grossly normal Judgement: Good judgement present (Psych) Objective Data Vital Signs Vital Signs: Vital Signs - 24 hr 01/18/22 14:00 01/18/22 17:30 01/18/22 22:00 Temperature 96.9 F L 98.4 F Pulse Rate 88 77 Respiratory Rate 20 18 Blood Pressure 141/87 H 134/79 Pulse Oximetry 96 95 94 Oxygen Delivery Room Air 01/19/22 06:00 01/19/22 08:00 Temperature 99.1 F Pulse Rate 81 Respiratory Rate 18 Blood Pressure 133/81 Pulse Oximetry 92 Oxygen Delivery Room Air Intake/Output Intake/Output: Intake & Output 01/16/22 01/17/22 01/18/22 01/19/22 23:59 23:59 23:59 23:59 Intake Total 2730 3270 420 Balance 2730 3270 420 Meds/Results Medications: Active Medications Generic Name Dose Route Start Last Admin Trade Name Freq PRN Reason Stop Dose Admin Acetaminophen 650 mg 01/17/22 07:54 01/19/22 06:20 Acetaminophen 325 Mg Tablet PO 650 mg Q4H PRN Administration Mild Pain (1-3) or Fever Albuterol 2 puff 01/17/22 13:40 Albuterol Sulfate (*Sp) Aerosol 1 Puff INHALATION Q4H PRN shortness of breath or wheezing Aspirin 81 mg 01/18/22 09:00 01/19/22 08:24 Aspirin 81 Mg Chewable Tablet PO 81 mg DAILY ALICIA Administration Atorvastatin Calcium 40 mg 01/17/22 21:00 01/18/22 21:09 Atorvastati
[2022-01-19] MEDS: POTASSIUM CHLORIDE 20 MEQ PACKET (FOR LIQUID) 40 MEQ PO (11:54)
[2022-01-19 14:00] VITALS: BP 146/96; PULSE 89; RESP 16; TEMP 36.3; O2SAT 96
--- NOTE | 2022-01-19 15:00 | PCNSR ---
On 01/19/22, the student,Sammi Vitale, provided care and completed [facility] documentation on this patient. I have reviewed the student's documentation and agree with the findings.
--- NOTE | 2022-01-19 15:31 | PM.DS ---
DS: Admitting Diagnosis Discharge Date 01/19/2022 1531 Admitting Diagnosis Diverticulitis with perforation and no abscess or bleeding. Epigastric pain DS: Discharge Diagnosis Discharge Diagnosis (1) Diverticulitis of small intestine with perforation without abscess or bleeding: Code(s): K57.00 - Diverticulitis of small intestine with perforation and abscess without bleeding Status: Acute Assessment and Plan: CT abd/pelvis on admission demonstrated large and small bowel diverticulosis with LUQ small bowel diverticulitis with small gas suggestive of microperforation. - General surgery consulted and the patient was treated with conservative management: bowel rest, IV fluids and IV Zosyn 3.375 mg Q6 hours 01/17 to 01/19. He was transitioned to oral Levaquin 750 mg PO Q24 hours and metronidazole 500 mg PO Q8 hours x 8 days, to complete 10-day course. - His diet was slowly advanced to low residue diet with good tolerance. Pickle Cutter and dietary information were provided during his hospital stay. - His abdominal pain and distension improved clinically. He was noted to have elevated WBC 12.5 and 12.8 prior to discharge, however, the patient reported feeling significantly better, he was afebrile and KUB showed normal gas bowel pattern x 48 hours. - Pain control with IV/PO medications PRN with good tolerance. - He will have repeat CBC w/diff in 1 week. - He will follow up with General Surgery in 2 weeks outpatient. (2) Epigastric pain: Code(s): R10.13 - Epigastric pain Status: Acute Assessment and Plan: -As above. -He was continue on PPI therapy. (3) Dyslipidemia: Code(s): E78.5 - Hyperlipidemia, unspecified Status: Chronic Assessment and Plan: - Continued on home medications - Stable. (4) Coronary artery disease involving [place] coronary artery of [place] heart: Qualifiers: Associated angina: without angina Qualified Code(s): I25.10 - Atherosclerotic heart disease of [place] coronary artery without angina pectoris Code(s): I25.10 - Atherosclerotic heart disease of [place] coronary artery without angina pectoris Status: Acute Assessment and Plan: -Continue home medications. -Stable. (5) Elevated PSA: Code(s): R97.20 - Elevated prostate specific antigen [PSA] Status: Chronic Assessment and Plan: PSA 5.1. Reportedly chronically elevated and monitored by outpatient provider. - UOP adequate without lower urinary tract symptoms DS: Summary Hospital Course Reason for hospitalization: abdominal pain Hospital Course: Jimbo Gray is a 71-year-old male with a history of coronary artery disease, hiatal hernia, seizures, and prostatomegaly with elevated PSAs. He presented to the emergency department with complaints of left-sided abdominal pain.? He reported feeling in his normal state of health up until the day prior to admission after eating a ham and cheese sandwich for lunch.? He began feeling bloated with some discomfort in the epigastric and left upper quadrant area.? He also reported feeling full.? He denied any nausea or vomiting.? He then had a slice of pizza and a beer for dinner, and after eating he reported feeling like he was not digesting his food well.? His bloating worsened.? No nausea.? That night, he began noticing left-sided abdominal pain that continued to worsen throughout the evening.? He did feel chilled and took his temperature, which was 100.1? F. He then took ibuprofen.? He denied ever having this pain in the past.? Without any relief in his pain, he decided to come into the ER for further evaluation.? Labs were unremarkable.? CT scan of the abdomen and pelvis showed small and large bowel diverticulosis with an area of small bowel diverticulitis in the LUQ with localized microperforation.? No evidence an abscess.? The patient was admitted to the medical floor for managem
== END 2022-01-19 16:42 | disposition home or self-care (01) ==
LOC: ANHED 08:25 → ANH3MEDSUR 08:37
PROVIDERS: Emergency Medicine; Nurse Practitioner Family; Admitting Provider Chiropractor; Emergency Provider Emergency Medicine; PCP Family Medicine; Visit Provider Chiropractor
DX: K57.00 Diverticulitis of small intestine with perforation and abscess without bleeding (principal); R10.13 Epigastric pain; E78.5 Hyperlipidemia, unspecified; M47.812 Spondylosis without myelopathy or radiculopathy, cervical region; I25.10 Atherosclerotic heart disease of native coronary artery without angina pectoris; Z95.5 Presence of coronary angioplasty implant and graft; N40.0 Benign prostatic hyperplasia without lower urinary tract symptoms; R97.20 Elevated prostate specific antigen [PSA]; K44.9 Diaphragmatic hernia without obstruction or gangrene; G40.909 Epilepsy, unspecified, not intractable, without status epilepticus; K57.10 Diverticulosis of small intestine without perforation or abscess without bleeding; K57.30 Diverticulosis of large intestine without perforation or abscess without bleeding; R94.31 Abnormal electrocardiogram [ECG] [EKG]; Z72.89 Other problems related to lifestyle; N52.9 Male erectile dysfunction, unspecified; Z85.828 Personal history of other malignant neoplasm of skin; Z82.49 Family history of ischemic heart disease and other diseases of the circulatory system; Z79.51 Long term (current) use of inhaled steroids; Z79.82 Long term (current) use of aspirin; Z79.899 Other long term (current) drug therapy
CPT/HCPCS: 36415; 74018; 74177; 80048; 80053; 81001; 83605; 83690; 83735; 84153; 85025; 85027; 85055; 93005; 96361; 96365; 96366; 96375; 96376; 99285; A9270; G0378; J2270; J2405; J2543; J7030; J7120; Q9967

== ENCOUNTER 2022-01-26 11:18 | Outpatient (CLI) | payer MEDICARE, SELFPAY ==
[2022-01-26 12:03] LABS: Basophils Absolute Auto 0.1 K/mm3 (0.0-0.1); Basophils Percent Auto 0.5 % (0.2-1.2); Eosinophils Absolute Auto 0.2 K/mm3 (0-0.3); Eosinophils Percent Auto 1.2 % (0-4.4); Hematocrit 47.9 % (42.0-52.0); Hemoglobin 15.7 g/dL (14.0-18.0); Immature Granulocyte Absolute 0.11 K/mm3 (0.00-0.031); Immature Granulocyte Percent A 0.8 % (0-0.5); Lymphocytes Percent Auto 13.8 % (18.3-44.2); Mean Corpuscular HGB Conc 32.8 g/dl (32-36); Mean Corpuscular Hemoglobin 30.3 pg (26-34); Mean Corpuscular Volume 92.5 fl (80-100); Mean Platelet Volume 9.1 fl (7.4-10.4); Monocytes Absolute Auto 1.3 K/mm3 (0.1-0.6); Neutrophils Absolute Auto 9.6 K/mm3 (1.3-6.7); Neutrophils Percent Auto 73.7 % (45.5-73.1); Platelet Count Result 505 k/mm3 (150-375); Red Blood Count 5.18 M/mm3 (4.6-6.20); Red Cell Distribution Width 12.2 % (11.5-14.5); White Blood Count 13.1 K/mm3 (4.5-10.0)
== END 2022-01-26 11:19 | disposition home or self-care (01) ==
LOC: ANHLAB 11:20
PROVIDERS: PCP Family Medicine; Visit Provider Nurse Practitioner Family
DX: K57.00 Diverticulitis of small intestine with perforation and abscess without bleeding (principal)
CPT/HCPCS: 36415; 85025

== ENCOUNTER 2022-05-05 09:10 | Outpatient (CLI) | payer MEDICARE, SELFPAY ==
[2022-05-05 19:15] LABS: Basophils Absolute Auto 0.1 K/mm3 (0.0-0.1); Basophils Percent Auto 0.6 % (0.2-1.2); Eosinophils Absolute Auto 0.3 K/mm3 (0-0.3); Eosinophils Percent Auto 2.7 % (0-4.4); Hematocrit 46.5 % (42.0-52.0); Hemoglobin 15.5 g/dL (14.0-18.0); Immature Granulocyte Absolute 0.04 K/mm3 (0.00-0.031); Immature Granulocyte Percent A 0.4 % (0-0.5); Lymphocytes Absolute Auto 2.37 K/mm3 (0.9-3.2); Lymphocytes Percent Auto 21.8 % (18.3-44.2); Mean Corpuscular HGB Conc 33.3 g/dl (32-36); Mean Corpuscular Volume 89.9 fl (80-100); Mean Platelet Volume 10.4 fl (7.4-10.4); Monocytes Absolute Auto 0.7 K/mm3 (0.1-0.6); Monocytes Percent Auto 6.4 % (2.6-8.5); Neutrophils Absolute Auto 7.4 K/mm3 (1.3-6.7); Neutrophils Percent Auto 68.1 % (45.5-73.1); Platelet Count Result 230 k/mm3 (150-375); Red Blood Count 5.17 M/mm3 (4.6-6.20); Red Cell Distribution Width 12.8 % (11.5-14.5); White Blood Count 10.9 K/mm3 (4.5-10.0)
[2022-05-05 19:23] LABS: Alanine Aminotransferase 29 U/L (6-50); Albumin Level 4.4 g/dL (3.5-5.1); Alkaline Phosphatase 105 U/L (38-126); Anion Gap 13 mmol/L (8-16); Aspartate Amino Transferase 29 U/L (17-59); Bilirubin,Total 0.9 mg/dL (0.2-1.3); Blood Urea Nitrogen 12 mg/dL (9-20); Calcium 8.7 mg/dL (8.4-10.2); Carbon Dioxide 25 mmol/L (22-30); Chloride 100 mmol/L (98-107); Cholesterol 152 mg/dL (0-200); Estimated Glomerular Filt Rate > 60; Glucose 100 mg/dL (65-110); HDL Direct 40 mg/dL; Sodium 138 mmol/L (137-145); Triglycerides 107 mg/dL (<150)
[2022-05-05 19:35] LABS: LDL Cholesterol Direct 86 mg/dL
[2022-05-05 19:46] LABS: Vitamin D 25 Hydroxy 37.9 ng/mL
== END 2022-05-05 09:11 | disposition home or self-care (01) ==
LOC: ANHGOSHLAB 09:16
PROVIDERS: PCP Family Medicine; Visit Provider Family Medicine
DX: E55.9 Vitamin D deficiency, unspecified (principal); E53.8 Deficiency of other specified B group vitamins; Z12.5 Encounter for screening for malignant neoplasm of prostate; R97.20 Elevated prostate specific antigen [PSA]; Z00.00 Encounter for general adult medical examination without abnormal findings; E78.5 Hyperlipidemia, unspecified; R56.9 Unspecified convulsions; R79.89 Other specified abnormal findings of blood chemistry
CPT/HCPCS: 36415; 80053; 80061; 82306; 82607; 84153; 84443; 85025; G0103

== ENCOUNTER → 2022-11-06 09:32 | Outpatient (CLI) | payer MEDICARE, SELFPAY ==
--- NOTE | ~2022-11-06 | US_ITS ---
EXAMINATION: US carotid duplex BI DATE: 11/06/2022 09:59 INDICATION: Unspecified visual disturbance TECHNIQUE: Grayscale, color Doppler, and pulsed Doppler images of the cervical carotid arteries were obtained. The degree of vessel stenosis is placed in one of the following categories: normal, <50%, 5 0-69%, >=70% but less than near-occlusion, near-occlusion, or total occlusion. Note that percent sten osis relative to normal distal artery lumen diameter is indirectly measured from velocity measurement s as described by Jhon, et al. Radiology 2003; 229:340-346. COMPARISON: None. FINDINGS: RIGHT: The right common carotid artery (CCA) peak systolic velocity (PSV) is 122 cm/s. The right internal ca rotid artery (ICA) PSV is 88 cm/s. The right ICA end-diastolic velocity (EDV) is 13 cm/s. The right I CA/CCA PSV ratio is 0.7. Grayscale and color Doppler images yield an estimate of <50% diameter reduct ion from plaque in the ICA. The external carotid artery (ECA) PSV is 123 cm/s. There is antegrade funmilayo w in the right vertebral artery. LEFT: The left CCA PSV is 125 cm/s. The left ICA PSV is 60 cm/s. The left ICA EDV is 17 cm/s. The left ICA/ CCA PSV ratio is 0.5. Grayscale and color Doppler images yield an estimate of <50% diameter reduction from plaque in the ICA. The ECA PSV is 76 cm/s. There is antegrade flow in the left vertebral artery . IMPRESSION: 1. <50% stenosis from negligible plaque in the right internal carotid artery. 2. <50% stenosis from negligible plaque in the left internal carotid artery. Reviewed, dictated and finalized at location A.
== END ==
PROVIDERS: PCP Family Medicine; Visit Provider Specialist
DX: I65.23 Occlusion and stenosis of bilateral carotid arteries (principal); H53.9 Unspecified visual disturbance
CPT/HCPCS: 93880

== ENCOUNTER 2023-05-08 08:04 | Outpatient (CLI) | payer MEDICARE, SELFPAY ==
[2023-05-08 19:47] LABS: Basophils Absolute Auto 0.1 K/mm3 (0.0-0.1); Basophils Percent Auto 0.7 % (0.2-1.2); Eosinophils Absolute Auto 0.3 K/mm3 (0-0.3); Eosinophils Percent Auto 3.4 % (0-4.4); Hematocrit 47.4 % (42.0-52.0); Hemoglobin 15.7 g/dL (14.0-18.0); Immature Granulocyte Absolute 0.03 K/mm3 (0.00-0.031); Immature Granulocyte Percent A 0.4 % (0-0.5); Lymphocytes Absolute Auto 2.48 K/mm3 (0.9-3.2); Lymphocytes Percent Auto 30.2 % (18.3-44.2); Mean Corpuscular HGB Conc 33.1 g/dl (32-36); Mean Corpuscular Hemoglobin 30.4 pg (26-34); Mean Corpuscular Volume 91.7 fl (80-100); Mean Platelet Volume 10.6 fl (7.4-10.4); Monocytes Absolute Auto 0.7 K/mm3 (0.1-0.6); Monocytes Percent Auto 8.8 % (2.6-8.5); Neutrophils Absolute Auto 4.6 K/mm3 (1.3-6.7); Neutrophils Percent Auto 56.5 % (45.5-73.1); Platelet Count Result 206 k/mm3 (150-375); Red Blood Count 5.17 M/mm3 (4.6-6.20); Red Cell Distribution Width 12.4 % (11.5-14.5); White Blood Count 8.2 K/mm3 (4.5-10.0)
[2023-05-08 19:50] LABS: Alanine Aminotransferase 24 U/L (6-50); Albumin Level 4.3 g/dL (3.5-5.1); Alkaline Phosphatase 82 U/L (38-126); Anion Gap 7 mmol/L (8-16); Aspartate Amino Transferase 36 U/L (17-59); Blood Urea Nitrogen 10 mg/dL (9-20); Calcium 8.7 mg/dL (8.4-10.2); Carbon Dioxide 28 mmol/L (22-30); Chloride 102 mmol/L (98-107); Cholesterol 151 mg/dL (0-200); Estimated Glomerular Filt Rate > 60; Glucose 95 mg/dL (65-110); HDL Direct 37 mg/dL; Potassium 4.1 mmol/L (3.4-5.0); Sodium 137 mmol/L (137-145); Triglycerides 121 mg/dL (<150)
[2023-05-08 20:01] LABS: LDL Cholesterol Direct 91 mg/dL
[2023-05-08 20:19] LABS: Prostate Specific Antigen 6.6 ng/mL (< OR = 4.0)
[2023-05-08 20:38] LABS: Vitamin D 25 Hydroxy 25.2 ng/mL
[2023-05-08 22:24] LABS: Hemoglobin A1C 5.4 % (<5.7)
== END 2023-05-08 08:05 | disposition home or self-care (01) ==
LOC: ANHGOSHLAB 08:05
PROVIDERS: PCP Family Medicine; Visit Provider Family Medicine
DX: Z12.5 Encounter for screening for malignant neoplasm of prostate (principal); I10 Essential (primary) hypertension; E53.8 Deficiency of other specified B group vitamins; R97.20 Elevated prostate specific antigen [PSA]; E78.5 Hyperlipidemia, unspecified; I25.10 Atherosclerotic heart disease of native coronary artery without angina pectoris; R73.9 Hyperglycemia, unspecified; E55.9 Vitamin D deficiency, unspecified
CPT/HCPCS: 36415; 80053; 80061; 82306; 82607; 83036; 84153; 84443; 85025; G0103

== ENCOUNTER 2023-06-12 01:08 | Day surgery (SDC) | payer MEDICARE, SELFPAY ==
[2023-06-07 13:26] VITALS: BMI 26.4
--- NOTE | 2023-06-08 14:17 | SUR.PREOP ---
Patient called regarding upcoming procedure. Reviewed preop instructions, appointment times, and procedure prep.
[2023-06-12 10:18] VITALS: BP 151/94; PULSE 82; RESP 18; TEMP 36.7; O2SAT 98
[2023-06-12] MEDS: LACTATED RINGERS 1,000 ML 150 ML IV CONT (10:20)
--- NOTE | 2023-06-12 11:12 | WPDANESEPPF ---
Anes - Initial Pre Proc Eval Procedure: Operation Date: 06/12/23 11:30 Proposed Procedures p Esophagogastroduodenoscopy - Maurice Cummings MD Date/Time: 06/12/23 11:12 Surgeon: Maurice Cummings MD Pre Op Diagnosis: Dysphagia Patient Data Age: 73 Gender: M Height: 1.65 m Weight: 72.9 kg Last Vital Signs Temp 98.0 F 06/12/23 10:18 Pulse 82 06/12/23 10:18 Resp 18 06/12/23 10:18 BP 151/94 H 06/12/23 10:18 Pulse Ox 98 06/12/23 10:18 O2 Del Method Room Air 06/12/23 10:18 Allergies Allergy/AdvReac Type Severity Reaction Status Date / Time No Known Allergies Allergy Unknown Verified 06/12/23 10:16 Home Medications Medication Instructions Recorded Confirmed Type aspirin 81 mg capsule 81 mg PO DAILY 02/28/21 06/07/23 History omeprazole 40 mg capsule,delayed 40 mg PO DAILY PRN Heartburn #30 11/22/21 06/07/23 Rx release caps finasteride 5 mg tablet 5 mg PO DAILY 05/04/22 06/07/23 History cyanocobalamin (vitamin B-12) 1,000 mcg sublingual DAILY #90 tabs 05/08/22 06/07/23 Rx 1,000 mcg sublingual tablet atorvastatin 40 mg tablet 40 mg PO QHS #90 tabs 03/28/23 06/07/23 Rx sildenafil 100 mg tablet 100 mg PO .PRN #30 tabs 05/07/23 06/07/23 Rx ergocalciferol (vitamin D2) 1,250 1,250 mcg PO WEEKLY #12 caps 05/09/23 06/07/23 Rx mcg (50,000 unit) capsule lisinopril 20 mg tablet 20 mg PO DAILY #90 tabs 06/06/23 06/07/23 Rx Patient hx anesthesia problems: none Family hx anesthesia problems: none Results Review: All pre-operative results and documents have been reviewed as part of the pre-operative evaluation. [facility] Past Medical History Medical History BPH loc w/o ur obs/LUTS Cervical spondylosis Coronary artery disease involving [place] coronary artery of [place] heart Diverticulitis of small intestine with perforation without abscess or bleeding (~12/2021) Diverticulosis large intestine w/o perforation or abscess w/o bleeding Dyslipidemia Elevated PSA Erectile dysfunction GERD without esophagitis History of coronary stenosis History of esophageal dilatation (~10/2021) Seizures Skin cancer (~2009) Vitamin B12 deficiency Vitamin D deficiency Surgical History Surgical History History of colonoscopy with polypectomy History of coronary artery stent placement (~2009) 2009 History of esophagogastroduodenoscopy (EGD) History of left inguinal hernia repair (~2015) 2015 Family History Family History Mother Family history of cardiac disorder Father Family history of coronary artery disease Family history of cardiovascular disease Grandparent Family history of cardiovascular disease Social History Social History Smoking status: Never smoker Alcohol intake: current Drinks per week: 2 Substance use: never Substance use type: does not use Lack of Transportation: No Lack of Food: Never True Current Housing: I Have Housing Concerned About Future Housing: No Difficulty Paying Gas/Electric Bills: No Difficulty Paying for Meds: No Currently Unemployed: No Education: Bachelor's Degree Difficulty w/ Childcare or Family Care: No Living arrangements: with family Additional living arrangements comments: Occupation/Education: retired Gender identity (if verbalized by the patient): Male Sexual Orientation (if Verbalized by the Patient): Straight or Heterosexual Spiritual care concerns: No Agree to blood products: Yes Anes - Eval Final PreProcedure Day of Procedure 06/12/23 11:12 Patient weight: normal Heart: regular rate and rhythm Lungs: clear to auscultation Airway: Mallampati scale class II Neurological: alert and oriented Last oral intake: >/= 8 hours ASA classification: III Emergent: no Anesthe
--- NOTE | 2023-06-12 11:27 | PM.HPGS ---
History of Present Illness History of Present Illness Consent: Risks, benefits, and alternatives have been discussed and questions answered. Patient agrees to proceed with procedure. Chief complaint: Dysphagia Narrative: Jimbo Gray is a 73 year old male with dysphagia, h/o EGD 2021 with dilation up to 18 mm using balloon (had web) Review of Systems Constitutional: Constitutional: Denies headache(s) and Denies weakness Eyes: Eyes: Denies blurry vision ENT: Reports Normal hearing present, Denies headache(s) and Denies neck pain Cardiovascular: Cardiovascular: Denies chest pain and Denies dyspnea Respiratory: Respiratory: Denies dyspnea Gastrointestinal: Gastrointestinal: Reports no additional gastrointestinal complaints Genitourinary: Genitourinary: Denies dysuria Musculoskeletal: Musculoskeletal: Denies neck pain Integumentary/Breasts: Skin/Breast: Denies dry skin Neurologic: Reports Normal hearing present, Denies headache(s) and Denies weakness Psychiatric: Psychiatric: Denies anxiety Endocrine: Endocrine: Denies change in body appearance Hematologic/Lymphatic: Hematologic/Lymphatic: Denies easy bleeding Allergic/Immunologic: Allergic/Immunologic: Denies urticaria PMFSH Past Medical History Medical History BPH loc w/o ur obs/LUTS Cervical spondylosis Coronary artery disease involving zuni coronary artery of zuni heart Diverticulitis of small intestine with perforation without abscess or bleeding (~12/2021) Diverticulosis large intestine w/o perforation or abscess w/o bleeding Dyslipidemia Elevated PSA Erectile dysfunction GERD without esophagitis History of coronary stenosis History of esophageal dilatation (~10/2021) Seizures Skin cancer (~2009) Vitamin B12 deficiency Vitamin D deficiency Surgical History Surgical History History of colonoscopy with polypectomy History of coronary artery stent placement (~2009) 2009 History of esophagogastroduodenoscopy (EGD) History of left inguinal hernia repair (~2015) 2015 Family History Family History Mother Family history of cardiac disorder Father Family history of coronary artery disease Family history of cardiovascular disease Grandparent Family history of cardiovascular disease Social History Social History Smoking status: Never smoker Alcohol intake: current Drinks per week: 2 Substance use: never Substance use type: does not use Lack of Transportation: No Lack of Food: Never True Current Housing: I Have Housing Concerned About Future Housing: No Difficulty Paying Gas/Electric Bills: No Difficulty Paying for Meds: No Currently Unemployed: No Education: Bachelor's Degree Difficulty w/ Childcare or Family Care: No Living arrangements: with family Additional living arrangements comments: Occupation/Education: retired Gender identity (if verbalized by the patient): Male Sexual Orientation (if Verbalized by the Patient): Straight or Heterosexual Spiritual care concerns: No Agree to blood products: Yes Meds Home Medications and Allergies Home Medications Medication Instructions Recorded Confirmed Type aspirin 81 mg capsule 81 mg PO DAILY 02/28/21 06/07/23 History omeprazole 40 mg capsule,delayed 40 mg PO DAILY PRN Heartburn #30 11/22/21 06/07/23 Rx release caps finasteride 5 mg tablet 5 mg PO DAILY 05/04/22 06/07/23 History cyanocobalamin (vitamin B-12) 1,000 mcg sublingual DAILY #90 tabs 05/08/22 06/07/23 Rx 1,000 mcg sublingual tablet atorvastatin 40 mg tablet 40 mg PO QHS #90 tabs 03/28/23 06/07/23 Rx sildenafil 100 mg tablet 100 mg PO .PRN #30 tabs 05/07/23 06/07/23 Rx ergocalciferol (vitamin D2) 1,250 1,250 mcg PO WEEKLY #12 caps 05/09/23 06/07/23 Rx mcg (
[2023-06-12 11:37] VITALS: BP 121/80; PULSE 72; RESP 16; O2SAT 100
[2023-06-12 11:47] VITALS: BP 142/87; PULSE 78; RESP 18; O2SAT 98
[2023-06-12 11:57] VITALS: BP 136/91; PULSE 72; RESP 18; O2SAT 98
== END 2023-06-12 12:06 | disposition home or self-care (01) ==
PROVIDERS: PCP Family Medicine; Visit Provider Internal Medicine Gastroenterology
PROC: 0DJ08ZZ Inspection of Upper Intestinal Tract, Via Natural or Artificial Opening Endoscopic (ICD-10-PCS; CPT 43235; principal; 2023-06-12 11:30)
DX: K22.2 Esophageal obstruction (principal); K29.50 Unspecified chronic gastritis without bleeding; K44.9 Diaphragmatic hernia without obstruction or gangrene; I25.10 Atherosclerotic heart disease of native coronary artery without angina pectoris; E78.5 Hyperlipidemia, unspecified; K21.9 Gastro-esophageal reflux disease without esophagitis; E55.9 Vitamin D deficiency, unspecified; E53.8 Deficiency of other specified B group vitamins; N40.0 Benign prostatic hyperplasia without lower urinary tract symptoms; Z79.82 Long term (current) use of aspirin; Z95.5 Presence of coronary angioplasty implant and graft
CPT/HCPCS: 43249; 43239; 88305; C1726; J2704; J7120

== ENCOUNTER 2024-05-09 08:02 | Outpatient (CLI) | payer MEDICARE, SELFPAY ==
[2024-05-09 14:27] LABS: Basophils Absolute Auto 0.1 K/mm3 (0.0-0.1); Basophils Percent Auto 0.6 % (0.2-1.2); Eosinophils Absolute Auto 0.4 K/mm3 (0-0.3); Eosinophils Percent Auto 4.7 % (0-4.4); Hematocrit 47.4 % (42.0-52.0); Hemoglobin 16.2 g/dL (14.0-18.0); Immature Granulocyte Absolute 0.03 K/mm3 (0.00-0.031); Immature Granulocyte Percent A 0.3 % (0-0.5); Lymphocytes Absolute Auto 2.22 K/mm3 (0.9-3.2); Lymphocytes Percent Auto 24.6 % (18.3-44.2); Mean Corpuscular HGB Conc 34.2 g/dl (32-36); Mean Corpuscular Hemoglobin 31.3 pg (26-34); Mean Corpuscular Volume 91.7 fl (80-100); Mean Platelet Volume 10.5 fl (7.4-10.4); Monocytes Absolute Auto 0.8 K/mm3 (0.1-0.6); Neutrophils Absolute Auto 5.5 K/mm3 (1.3-6.7); Neutrophils Percent Auto 60.8 % (45.5-73.1); Platelet Count Result 237 k/mm3 (150-375); Red Blood Count 5.17 M/mm3 (4.6-6.20); Red Cell Distribution Width 12.2 % (11.5-14.5)
[2024-05-09 15:48] LABS: Alanine Aminotransferase 21 U/L (6-50); Albumin Level 4.4 g/dL (3.5-5.1); Alkaline Phosphatase 89 U/L (38-126); Anion Gap 8 mmol/L (4-12); Aspartate Amino Transferase 29 U/L (17-59); Bilirubin,Total 0.9 mg/dL (0.2-1.3); Blood Urea Nitrogen 10 mg/dL (9-20); Calcium 9.2 mg/dL (8.4-10.2); Carbon Dioxide 29 mmol/L (22-30); Chloride 98 mmol/L (98-107); Cholesterol 150 mg/dL (0-200); Estimated Glomerular Filt Rate > 60; Glucose 97 mg/dL (65-110); HDL Direct 43 mg/dL; Potassium 4.8 mmol/L (3.4-5.0); Sodium 135 mmol/L (137-145); Triglycerides 130 mg/dL (<150)
[2024-05-09 16:01] LABS: LDL Cholesterol Direct 81 mg/dL
[2024-05-09 16:19] LABS: Prostate Specific Antigen 5.4 ng/mL (< OR = 4.0)
[2024-05-09 16:31] LABS: Hemoglobin A1C 5.8 % (<5.7)
== END 2024-05-09 08:03 | disposition home or self-care (01) ==
LOC: ANHGOSHLAB 08:03
PROVIDERS: PCP Family Medicine; Visit Provider Family Medicine
DX: E53.8 Deficiency of other specified B group vitamins (principal); E78.5 Hyperlipidemia, unspecified; Z12.5 Encounter for screening for malignant neoplasm of prostate; N52.9 Male erectile dysfunction, unspecified; Z00.00 Encounter for general adult medical examination without abnormal findings; I10 Essential (primary) hypertension; R73.9 Hyperglycemia, unspecified; E55.9 Vitamin D deficiency, unspecified
CPT/HCPCS: 36415; 80053; 80061; 82306; 82607; 83036; 84153; 84443; 85025; G0103

== ENCOUNTER 2024-07-29 08:12 | Outpatient (CLI) | payer MEDICARE, SELFPAY ==
--- NOTE | 2024-07-29 08:24 | ECG_ITS ---
Test Date: 2024-07-29 08:40:21 Measurements Intervals [place] Rate: 69 P: 54 RI: 174 QRS: 48 QRSD: 88 T: 45 QT: 365 QTc: 392 Interpretive Statements SINUS RHYTHM No previous ECG available for comparison Electronically Signed On 07-29-2024 16:17:22 CAR PILOT by Francisco Peralta M.D.
--- OUTSIDE RECORDS SUMMARY | 2024-07-29 08:26 | XMS_ITS | Referral Summary ---
Author Organization [facility] [address] [facility] [address] Address [address] [place] [address] Care Team Providers Care Testing Manager Name Role Phone Gris Ward MD Primary Care Provider Encounters Date Type Department Care Team Description 07/10/2024 Telephone [facility] Cardiology [address] [place] [address] Neftali Layton MD Medical Clearance form from Last 3 Months Allergies Active Allergy Reactions Criticality Noted Date Comments Penicillins Medications atorvastatin (LIPITOR) 40 mg tablet Take 1 tablet (40 mg total) by mouth daily 4 08/09/2017 Active levETIRAcetam XR (KEPPRA XR) 500 mg 24 hr tablet Take 500 mg by mouth daily 500 mg in the am and 500 mg in the pm Active aspirin 81 mg enteric coated tablet Take 1 tablet (81 mg total) by mouth daily Active cholecalciferol (VITAMIN D-3) 50,000 unit capsule Take 1 capsule (50,000 Units total) by mouth once a week 03/02/2021 Active finasteride (PROSCAR) 5 mg tablet Take 1 tablet (5 mg total) by mouth daily 02/20/2022 Active Active Problems Problem Noted Date Diagnosed Date Shortness of breath 11/14/2022 Coronary artery disease invo lving lumbee coronary artery of lumbee heart without angina pectoris 10/04/2017 Presence of stent in coronary artery 10/04/2017 History of TIA (transient ischemic attack) 10/04 History of idiopathic seizure 10/04/2017 Social History Tobacco Use Types Packs/Day Years Used Date Smoking Tobacco: Never Smokeless Tobacco: Never Tobacco Cessation:Counseling Given: Not Answered Alcohol Use Standard Drinks/Week Comments Yes 0 (1 standard drink = 0.6 oz pur e alcohol) Sex and Gender Information Value Date Recorded Sex Assigned at Not on file Legal Sex Male 1:59 AM [employer] WORK[employer] Gender Identity Not on file Sexual Orientation Not on file Last Filed Vital Signs Vital Sign Reading Time Taken Comments Blood Pressure 136/84 11/14/2022 1:31 PM CDT Pulse 64 11/14/2022 1:31 PM CDT Temperature - - Respiratory Rate 18 10/04/2017 10:12 AM CDT Oxygen Saturation 98% 11/14/2022 1:31 PM CDT Inhaled Oxygen Concentration - - Weight 73 kg (161 lb) 11/14/2022 1:31 PM CDT Height 165.1 cm (5' 5 ) 11/14/2022 1:31 PM CDT Body Mass Index 26.79 11/14/2022 1:31 PM CDT Plan of Treatment Not on file Insurance [facility] [employer]ET[employer] MEDICARE GOLD Care Teams Testing Manager Relationship Specialty Start Date End Date Gris Ward MD PCP - General Family Practice 03/04/20
--- OUTSIDE RECORDS SUMMARY | 2024-07-29 08:26 | XMS_ITS | Encounter Summary ---
Author Organization [facility] Address [address] [place] [address] Care Team Providers Care Manager Net Name Role Phone Peter Hernández MD Primary Care Provider [phone] Encounter Details Date Type Department Care Team (Late st Contact Info) Description 05/03/2022 Lab Requisition [facility] Care DermPath Lab [address] [place] [id number] Ryan Shelby MD [address] [place] [address] Social History Tobacco Use Types Packs/Day Years Used Date Smoking Tobacco: Never Assessed Sex and Gender Information Value Date Recorded Sex Assigned at Not on file Gender Identity Not on file Sexual Orientation Not on file documented as of this encounter Plan of Treatment Not on file documented as of this encounter Procedures Procedure Name Priority Date/Time Associated Diagnosis Comments DERMATOPATHOLOGY Routine 05/02/2022 12:0 0 AM CDT documented in this encounter Results * DERMATOPATHOLOGY (05/02/2022 12:00 AM CDT) Case Report Dermatopathology Report ? Case: [id number] ? Authorizing Provider: ??Ryan Shelby MD ?Collected: ? 05/02/2022 12:00 AM ? Ordering Location: ? [facility] DermPath Lab ?Received: ?05/03/2022 01:09 PM ? Pathologist: ? Marci Pardo MD ? Specimens: ?? A) - Skin, left frontal scalp ? B) - Skin, left forehead ? C) - Skin, lat to left ala on cheek ? D) - Skin, right lateral cheek ? 2 6:02 PM CDT DERMATOPATHOLOGY LABORATORY Final Diagnosis Specimen A. SKIN, left frontal scalp: ACTINIC KERATOSIS, LICHENOID (L57.0) Specimen B. SKIN, left forehead: ACTINIC KERATOSIS (L57.0) (see microscopic description) Specimen C. SKIN, lat to left ala on cheek: BASAL CELL CARCINOMA, KERATOTIC TYPE (C44.319) Specimen D. 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 The specimen consists of a shave biopsy measuring [id number]. Jar 0. Specimen B: Received is one formalin filled container labeled with the patient's name and designated left forehead. The specimen consists of a shave biopsy measuring [id number]. Jar 0. Specimen C: Received is one formalin filled container labeled with the patient's name and designated lat to left ala on cheek. The specimen consists of a shave biopsy measuring [id number]. Jar 0. Specimen D: Received is one formalin filled container labeled with the patient's name and designated right lateral cheek. The specimen consists of a shave biopsy measuring 5c3p8ky. Jar 0. 2 6:02 PM [facility] DERMATOPATHOLOGY LABORATORY Microscopic Description Specimen A. SKIN, left frontal scalp: There is focal parakeratosis. The lower half of the epidermis shows disorderly maturation of keratinocytes with nuclear pleomorphism. The dermis shows a band-like, chronic inflammatory infiltrate with occasional apoptotic keratinocytes and some basal vacuolar alteration. Specimen B. SKIN, left forehead: There is focal parakeratosis. The lower half of the epidermis shows disorderly maturation of keratinocytes with nuclear pleomorphism. The number of melanocytes, highlighted by MART-1/Melan-A immunohistochemical staining, is only mildly increased. Specimen C. SKIN, lat to left ala on cheek: The dermis is infiltrated by nests of basaloid cells that show peripheral palisading and are associated with fibromyxoid stroma. Both mitotic figures and necrotic cells are identified. There are also areas with squamous differentiation and keratinization within the nests. Specimen D. SKIN, right lateral cheek: The epidermis shows parakeratosis, full thickness disorderly maturation of keratinocytes, mitoses at different levels, and dyskeratotic cells. 2 6:02 PM CDT DERMATOPATHOLOGY LABORATORY Disclaimer An external and internal positive and negative controls are appropriate for the histochemical, immunohistochemical and immunofluorescence stain(s) in this case (if any), except where stated explicitly. The performance characteristics of the stain(s) cited in this report were developed and its performance characteristic determined by the Dermatopathology Laboratory at [facility], directed by Dr. Jc Ibarra. These tests need not be, and therefore are not, approved by the [place] Food and Drug Administration. The tests are used for clinical purposes. Billing Codes Specimen Charges Stain Charges 33400 88464 07613 05146 1 1 1 1 28641 1 2 6:02 PM CDT DERMATOPATHOLOGY LABORATORY Embedded Images 2 6:02 PM CDT DERMATOPATHOLOGY LABORATORY Pathology/Cytology TISSUE SPECIMEN FROM SKIN / Unknown 05/02/2022 05/03/2022 1:09 PM CDT Miscellaneous samples (specimen) TISSUE SPECIMEN FROM SKIN / Unknown 05/02/2022 05/03/2022 1:09 PM CDT Miscellaneous samples (specimen) TISSUE SPECIMEN FROM SKIN / Unknown 05/02/2022 05/03/2022 1:09 PM CDT Miscellaneous samples (specimen) TISSUE SPECIMEN FROM SKIN / Unknown 05/02/2022 05/03/2022 1:09 PM CDT Ryan Shelby MD LAB - PATHOLOGY/CYTO LOGY ORDERABLES DERMATOPATHOLOGY LABORATORY [facility] - Department of Dermatology [facility] Specialized Medicine [address] [place] [address], [address] [phone] documented in this encounter Visit Diagnoses Not on filedocumented in this encounter Care Teams Manager Net Relationship Specialty Start Date End Date Peter Hernández MD [address] [place] [address] PCP - General 11/10/09 documented as of this encounter
--- OUTSIDE RECORDS SUMMARY | 2024-07-29 08:26 | XMS_ITS | Clinical Summary ---
Author Organization [facility] Address [address] [place] [address] Care Team Providers Care Mining Analyst Name Role Phone Peter Hernández MD Primary Care Provider [phone] Source Comments [facility],non-owned Affiliates and Associated Physician Practices is amultiple site organization consisting of ambulatory clinics and hospital sitesin [place], [place], [place] and [place]. This disclosure is being madepursuant to the Care Everywhere program and may not contain all information available regarding this patient. Last updated 18.[facility] Social History Tobacco Use Types Packs/Day Years Used Date Smoking Tobacco: Never Assessed Sex and Gender Information Value Date Recorded Sex Assigned at Not on file Gender Identity Not on file Sexual Orientation Not on file Plan of Treatment Health Maintenance Due Date Last Done Comments HEPATITIS C SCREENING 01/28/1966 DTAP/TDAP/TD VACCINES (1 - Tdap) 02/01/1967 PNEUMOCOCCAL VACCINE 50+ (1 of 1 - PCV) 02/01/1998 ZOSTER VACCINE (1 of 2) 02/01/1998 Respiratory Syncytial Virus (RSV) Vaccine Pt: or over 60 yrs (1 - 1-dose 75+ series) 02/01/2023 COVID-19 VACCINE ( - 2023-2 5 season) 2024 INFLUENZA VACCINE (#1) 2024 DEPRESSION SCREENING 07/02/2024 MEDICARE AWV ? CALENDAR YEAR 2024 HEPATITIS B VACCINE Aged Out No longe r eligible based on patient's age to complete this topic HIB VACCINE Aged Out No longer eligi ble based on patient's age to complete this topic HPV VACCINE Aged Out No longer eligi ble based on patient's age to complete this topic MENINGOCOCCAL (Group B) VACCINE Aged Out No longer eligible based on patient's age to complete this topic MENINGOCOCCAL VACCINE Aged Out No apurva jenny eligible based on patient's age to complete this topic Care Teams Mining Analyst Relationship Specialty Start Date End Date Peter Hernández MD [address] [place] [address] PCP - General 11/10/09
--- OUTSIDE RECORDS SUMMARY | 2024-07-29 08:26 | XMS_ITS | Encounter Summary ---
Author Organization [facility] Address [address] [place] [address] Care Team Providers Care Mail Inserter Name Role Phone Peter Hernández MD Primary Care Provider [phone] Encounter Details Date Type Department Care Team (Late st Contact Info) Description 09/29/2022 Lab Requisition [facility] Care DermPath Lab [address] [place] [phone] Ryan Shelby MD [address] [place] [address] Social History Tobacco Use Types Packs/Day Years Used Date Smoking Tobacco: Never Assessed Sex and Gender Information Value Date Recorded Sex Assigned at Not on file Gender Identity Not on file Sexual Orientation Not on file documented as of this encounter Plan of Treatment Not on file documented as of this encounter Procedures Procedure Name Priority Date/Time Associated Diagnosis Comments DERMATOPATHOLOGY Routine 09/27/2022 3:33 AM CDT documented in this encounter Results * DERMATOPATHOLOGY (09/27/2022 3:33 AM CDT) Case Report Dermatopathology Report ? Case: [id number] ? Authorizing Provider: ??Ryan Shelby MD ?Collected: ? 09/27/2022 03:33 AM ? Ordering Location: ? [facility] Derm[facility] Lab ?Received: ?09/29/2022 07:13 AM ? Pathologist: ? Vanesa Hassan MD ? Specimen: ?Skin, right med cheek ? 11:31 AM [facility] DERMATOPATHOLOGY LABORATORY Final Diagnosis Specimen A. SKIN, right med cheek: EPIDERMAL AND DERMAL NECROSIS (L98.499) (see microscopic description) 11:31 AM [facility] DERMATOPATHOLOGY LABORATORY Clinical History R/O SCC HAK 11:31 AM [facility] DERMATOPATHOLOGY LABORATORY Gross Description Specimen A: Received is one formalin filled container labeled with the patient's name and designated right med cheek. The specimen consists of three shaved biopsies measuring 5x5x1 mm, 4x3x1 mm and 1x1x1 mm. Jar 0. 11:31 AM [facility] DERMATOPATHOLOGY LABORATORY Microscopic Description Specimen A. SKIN, right med cheek: There is full thickness epidermal necrosis and dermal necrosis beneath which there are vascular proliferation, fibroblasts, and an edematous stroma. There is no evidence of epithelial dysplasia or malignancy in the sections examined. 11:31 AM [facility] DERMATOPATHOLOGY LABORATORY Disclaimer An external and internal positive and negative controls are appropriate for the histochemical, immunohistochemical and immunofluorescence stain(s) in this case (if any), except where stated explicitly. The performance characteristics of the stain(s) cited in this report were developed and its performance characteristic determined by the Dermatopathology Laboratory at [facility], directed by Dr. Jc Ibarra. These tests need not be, and therefore are not, approved by the [place] Food and Drug Administration. The tests are used for clinical purposes. Billing Codes Specimen Charges Stain Charges 19836 1 3 11:31 AM CDT DERMATOPATHOLOGY LABORATORY Embedded Images 3 11:31 AM CDT DERMATOPATHOLOGY LABORATORY Pathology/Cytolo gy TISSUE SPECIMEN FROM SKIN / Unknown 09/27/2022 3:33 AM CDT 09/29/2022 7:13 AM CDT Ryan Shelby MD LAB - PATHOLOGY/CYTO LOGY ORDERABLES DERMATOPATHOLOGY LABORATORY [facility] - Department of Dermatology [facility] Medicine [address] [place] [address], [address] [phone] documented in this encounter Visit Diagnoses Not on filedocumented in this encounter Care Teams Mail Inserter Relationship Specialty Start Date End Date Peter Hernández MD [address] [place], [place] [id number] PCP - General 11/10/09 documented as of this encounter
--- OUTSIDE RECORDS SUMMARY | 2024-07-29 08:26 | XMS_ITS | Patient Health Summary ---
Author Organization [facility] Address [address] [place] [address] Care Team Providers Care Clay Preparation Supervisor Name Role Phone Peter Hernández MD Primary Care Provider [phone] Note from [facility],non-owned Affiliates and Associated Physician Practices is amultiple site organization consisting of ambulatory clinics and hospital sitesin [place], [place], [place] and [place]. This disclosure is being madepursuant to the Care Everywhere program and may not contain all information available regarding this patient. Last updated 18.[facility] Social History Tobacco Use Types Packs/Day Years Used Date Smoking Tobacco: Never Assessed Sex and Gender Information Value Date Recorded Sex Assigned at Not on file Gender Identity Not on file Sexual Orientation Not on file Procedures * DERMATOPATHOLOGY(Performed 09/27/2022) * DERMATOPATHOLOGY(Performed 05/02/2022) * DERMATOPATHOLOGY(Performed 08/15/2016) * DERMATOPATHOLOGY(Performed 03/23/2016) Results * DERMATOPATHOLOGY (09/27/2022 3:33 AM CDT) Only the most recent of4 resultswithin the time period is included. Case Report Dermatopathology Report ? Case: [id number] ? Authorizing Provider: ??Ryan Shelby MD ?Collected: ? 09/27/2022 03:33 AM ? Ordering Location: ? [facility] ?Received: ?09/29/2022 07:13 AM ? Pathologist: ? Vanesa Hassan MD ? Specimen: ?Skin, right med cheek ? 11:31 AM [facility] DERMATOPATHOLOGY [facility]ORAT[facility] Final Diagnosis Specimen A. SKIN, right med cheek: EPIDERMAL AND DERMAL NECROSIS (L98.499) (see microscopic description) 11:31 AM [facility] DERMATOPATHOLOGY [facility]ORAT[facility] Clinical History R/O SCC HAK 11:31 AM [facility] DERMATOPATHOLOGY [facility]OR[facility] Gross Description Specimen A: Received is one formalin filled container labeled with the patient's name and designated right med cheek. The specimen consists of three shaved biopsies measuring 5x5x1 mm, 4x3x1 mm and 1x1x1 mm. Jar 0. 11:31 AM [facility] DERMATOPATHOLOGY [facility]ORATORY Microscopic Description Specimen A. SKIN, right med cheek: There is full thickness epidermal necrosis and dermal necrosis beneath which there are vascular proliferation, fibroblasts, and an edematous stroma. There is no evidence of epithelial dysplasia or malignancy in the sections examined. 11:31 AM [facility] DERMATOPATHOLOGY [facility]ORATORY Disclaimer An external and internal positive and negative controls are appropriate for the histochemical, immunohistochemical and immunofluorescence stain(s) in this case (if any), except where stated explicitly. The performance characteristics of the stain(s) cited in this report were developed and its performance characteristic determined by the Dermatopathology Laboratory at [facility], directed by Dr. Jc Ibarra. These tests need not be, and therefore are not, approved by the [place] Food and Drug Administration. The tests are used for clinical purposes. Billing Codes Specimen Charges Stain Charges 62457 1 3 11:31 AM CDT DERMATOPATHOLOGY LABORATORY Embedded Images 3 11:31 AM CDT DERMATOPATHOLOGY LABORATORY Pathology/Cytolo gy TISSUE SPECIMEN FROM SKIN / Unknown 09/27/2022 3:33 AM CDT 09/29/2022 7:13 AM CDT Ryan Shelby MD LAB - PATHOLOGY/CYTO LOGY ORDERABLES DERMATOPATHOLOGY LABORATORY [facility] - Department of Dermatology [facility] Medicine [address] [place] [address], [address] [phone] Care Teams Clay Preparation Supervisor Relationship Specialty Start Date End Date Peter Hernández MD [address] [address] PCP - General 11/10/09
--- OUTSIDE RECORDS SUMMARY | 2024-07-29 08:26 | XMS_ITS | Referral Summary ---
Author Organization [facility] Address [address] [place] [address] Care Team Providers Care Repairer Maintenance Building Name Role Phone Peter Hernández MD Primary Care Provider [phone] Source Comments [facility],non-owned Affiliates and Associated Physician Practices is amultiple site organization consisting of ambulatory clinics and hospital sitesin [place], [place], [place] and [place]. This disclosure is being madepursuant to the Care Everywhere program and may not contain all information available regarding this patient. Last updated 18.[facility] [employer] Social History Tobacco Use Types Packs/Day Years Used Date Smoking Tobacco: Never Assessed Sex and Gender Information Value Date Recorded Sex Assigned at Not on file Gender Identity Not on file Sexual Orientation Not on file Plan of Treatment Not on file Care Teams Repairer Maintenance Building Relationship Specialty Start Date End Date Peter Hernández MD [address] [place] [address] PCP - General 11/10/09
--- OUTSIDE RECORDS SUMMARY | 2024-07-29 08:26 | XMS_ITS | Clinical Summary ---
Author Organization [facility] [address] [place] [address] [address] [place] [address] Care Team Providers Care Edm Operator Name Role Phone Gris Ward MD Primary Care Provider Allergies Active Allergy Reactions Criticality Noted Date [...] breath 11/14/2022 Coronary artery disease invo lving [place] coronary artery of [place] heart without angina pectoris 10/04/2017 Presence of stent in coronary artery 10/04/2017 History of TIA (transient ischemic attack) 10/04 History of idiopathic seizure 10/04/2017 Encounters Date Type Department Care Team Description 07/10/2024 Telephone [facility] Cardiology [address] [place] [address] Neftali Layton MD Medical Clearance form from Last 3 Months Medical History Medical History Date Comments CAD (coronary artery disease) Family History Medical History Relation Name Comments Other Father Unknown; Cause of : Unknown Heart failure Mother Congestive hea rt failure; Cause of : Congestive heart failure Other Sister 2 Unknown; Cause of : Unknown Relation Name Status Comments Father (Age 54) Mother (Age 91) Sister 1 (Age 55) Sister 2 Social History Tobacco Use Types Packs/Day Years Used Date Smoking Tobacco: Never Smokeless Tobacco: Never Tobacco Cessation:Counseling Given: Not Answered Alcohol Use Standard Drinks/Week Comments Yes 0 (1 standard drink = 0.6 oz pur e alcohol) Sex and Gender Information Value Date Recorded Sex Assigned at Not on file 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 Gender Identity Not on file Sexual Orientation Not on file Obstetrics History Last Filed Vital Signs Vital Sign Reading [...] 11/14/2022 1:31 PM CDT Plan of Treatment Health Maintenance Due Date Last Done Comments Depression Screening 1950 Fall Risk Assessment 1950 Hepatitis C Screening 1950 Hepatitis B Screening 02/01/1966 Zoster Vaccine (1 of 2) 02/01/1998 Well Visit 65+ 02/01/2013 Pneumococcal vaccine 65+ (2 of 2 - PCV) 07/12/2016 0 07/12/2015 Influenza Vaccine (#1) 2024 DTaP/Tdap/Td Vaccine (2 - Td or Tdap) 07/12/202505/2016, 07/02/1998 Insurance [facility] MEDIC[facility] GOLD Care Teams Edm Operator Relationship Specialty Start Date End Date Gris Ward MD PCP - General Family Practice 03/04/20
--- OUTSIDE RECORDS SUMMARY | 2024-07-29 08:26 | XMS_ITS | Clinical Summary ---
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
--- OUTSIDE RECORDS SUMMARY | 2024-07-29 08:26 | XMS_ITS | Encounter Summary ---
Author Organization [facility] Address 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 [address] [email or web address] Cardiac Catheterization Comprehensive Report Patient: ?Jimbo Gray Study ID: ? [id number] Gender: ? M : ?1950 Age: ?58 years Race: ? 1 Room: Bed: Height: ? 65 in ( 165.1 cm ) Study Date: ? September 18, 2008 Patient status: Outpatient Weight: ? 165 lb ( 75 kg ) Access. #: ?[id number] POC: Attending MD: ?? Yumiko Hurst MD: ??Yumiko Indications and History: INDICATIONS: Unstable angina, CCS class III, with onset one to seven days prior to admission. The patient experienced recurrent pain. Abnormal stress test. PRIOR DIAGNOSTIC TEST RESULTS: Previous exercise nuclear stress test performed on September 15, 2008 was positive. Procedure(s) Performed: DIAGNOSTIC PROCEDURES: Left heart catheterization. Left ventriculography. Selective coronary angiography. SUPPORT INTERVENTIONS: Angioplasty. Stent. Stent Placement. Study Conclusions: SUMMARY - ??Global left ventricular function was hypercontractile. EF estimated by contrast ventriculography was 70 %. - ??There was severe 1 -vessel coronary artery disease ( 100 % LAD). Mid LAD: There was a diffuse 100 % stenosis : KAYE grade 1 flow though the vessel (slow flow without perfusion). Was amenable to angioplasty. - ??A successful balloon angioplasty with drug eluting stent was performed on the 100 % lesion in the mid LAD. Following intervention there was an excellent angiographic appearance with a 0 % residual stenosis. - ??A successful drug eluting stent was performed on the 75 % lesion in the mid LAD. Following intervention there was an excellent angiographic appearance with a 0 % residual stenosis. RECOMMENDATIONS Successful percutaneous coronary intervention of the of mid AD.. The patient will remain in the hospital overnight for observation and rest; I anticipate discharge tomorrow. COMPLICATIONS: There were no complications. Description of Procedure: BACKGROUND INFORMATION: The procedures, together with their attendant risks and alternatives, and conscious sedation were explained to the patient and informed consent was obtained. Contrast ( Optiray, 200 ml ) was administered during the procedure. The patient was given 55.000 mg Angiomax Bolus(IVP) 5mg/ml. The patient was given 1.700 mg/kg/hr Angiomax Drip 250mg/50ml. The patient was given 324.000 mg ASPIRIN. The patient was given 100.000 mL (IV) IV Solutions. The patient was given 3.000 l/min OXYGEN. The patient was given 600.000 mg PLAVIX. The patient was given 2.000 mg VERSED (IVP). NARRATIVE: - ??Right femoral artery access. Left heart catheterization. A 4F Multipack PIG (diagnostic) catheter was advanced to the ascending aorta. The catheter was advanced across the aortic valve. Pressure was recorded in the aorta and left ventricle. Ventriculography was performed using power injection of contrast agent. 30 degree MEJÍA images were obtained. Post-ventriculography LV pressure was obtained. The catheter was gradually withdrawn into the aorta under continuous pressure monitoring and aortic pressure was recorded. Left and right coronary angiography. A 4F Multipack JL4 (diagnostic) , 4F Multipack JR4 (diagnostic) catheter was advanced to the ascending aorta , , and positioned in the vessel ostia. Digital angiography was performed in multiple projections using hand-injection of contrast. Arterial hemostasis was obtained by deployment of Angioseal. Cardiac structures: VENTRICULOGRAPHY: Global left ventricular function was hypercontractile. EF estimated by contrast ventriculography was 70 %. Coronary and graft angiography: LEFT ANTERIOR DESCENDING AND BRANCHES: Proximal LAD: The vessel was large. Angiography showed mild diffuse atherosclerosis. Mid LAD: There was a diffuse 100 % stenosis : KAYE grade 1 flow though the vessel (slow flow without perfusion). Was amenable to angioplasty. LEFT CIRCUMFLEX AND BRANCHES: Circumflex: The vessel was medium-sized. Angiography showed mild diffuse disease. RIGHT CORONARY AND BRANCHES: RCA: The vessel was very large (dominant) and moderately ectatic. Angiography showed mild diffuse disease. IMPRESSIONS: There was severe 1 -vessel coronary artery disease ( 100 % LAD). Coronary Interventions: FIRST LESION: First lesion Summary: A successful balloon angioplasty with drug eluting stent was performed on the 100 % lesion in the mid LAD. Following intervention there was an excellent angiographic appearance with a 0 % residual stenosis. The residual lesion was diffuse. Following the procedure, the intervention site exhibited KAYE 3 flow. First lesion intervention detail: Procedures: Balloon angioplasty was performed with a 2.5 x 20mm Hitchcock 2 RX balloon. A 3.0mm x 18mm Xience V RX stent was deployed. Second lesion summary: A successful drug eluting stent was performed on the 75 % lesion in the mid LAD. Following intervention there was an excellent angiographic appearance with a 0 % residual stenosis. Second lesion intervention detail: Procedures: A 3.0mm x 12mm Xience V RX stent was deployed. Condition1: --- ??Pressure mmHg ? Rate ?dPdt AO ?? 128-S/ 83-D, 104-M ??82 BPM LV ?? 149-S/ 5-BD, 9-ED ?? 90 BPM ??2200 AOp ??126-S/ 75-D, 97-M ?? 76 BPM PBa ??135-S/ 76-D, 103-M ??81 BPM UD1 ??138-S/ 79-D, 104-M ??82 BPM PBv ??145-S/ 4-BD, 10-ED ??86 BPM ??1860 Prepared and Electronically Authenticated Matt Jones MD Confirmed September 18, 2008 16:38:34 Procedure Note Provider, Historical - 09/18/2008 [facility] [address] [place] [address] [email or web address] Cardiac Catheterization Comprehensive Report Patient: Jimbo Gray Study ID: [id number] Gender: M : 1950 Age: 58 years Race: 1 Room: Bed: Height: 65 in ( 165.1 cm ) Study Date: September 18, 2008 Patient status: Outpatient Weight: 165 lb ( 75 kg ) Access. #: [id number] POC: Attending MD: Yumiko Hurst MD: Yumiko Indications and History: INDICATIONS: Unstable angina, CCS class III, with onset one to seven days prior to admission. The patient experienced recurrent pain. Abnormal stress test. PRIOR DIAGNOSTIC TEST RESULTS: Previous exercise nuclear stress test performed on September 15, 2008 was positive. Procedure(s) Performed: DIAGNOSTIC PROCEDURES: Left heart catheterization. Left ventriculography. Selective coronary angiography. SUPPORT INTERVENTIONS: Angioplasty. Stent. Stent Placement. Study Conclusions: SUMMARY - Global left ventricular function was hypercontractile. EF estimatedby contrast ventriculography was 70 %. - There was severe 1 -vessel coronary artery disease ( 100 % LAD). Mid LAD: There was a diffuse 100 % stenosis : KAYE grade 1 flow though the vessel (slow flow without perfusion). Was amenable to angioplasty. - A successful balloon angioplasty with drug eluting stent wasperformed on the 100 % lesion in the mid LAD. Following intervention there was an excellent angiographic appearance with a 0 % residual stenosis. - A successful drug eluting stent was performed on the 75 % lesion inthe mid LAD. Following intervention there was an excellent angiographic appearance with a 0 % residual stenosis. RECOMMENDATIONS Successful percutaneous coronary intervention of the of mid AD.. The patient will remain in the hospital overnight for observation and rest;I anticipate discharge tomorrow. COMPLICATIONS: There were no complications. Description of Procedure: BACKGROUND INFORMATION: The procedures, together with their attendant risks and alternatives,and conscious sedation were explained to the patient and informed consentwas obtained. Contrast ( Optiray, 200 ml ) was administered during the procedure. The patient was given 55.000 mg Angiomax Bolus(IVP) 5mg/ml.The patient was given 1.700 mg/kg/hr Angiomax Drip 250mg/50ml. The patientwas given 324.000 mg ASPIRIN. The patient was given 100.000 mL (IV) IV Solutions. The patient was given 3.000 l/min OXYGEN. The patient wasgiven 600.000 mg PLAVIX. The patient was given 2.000 mg VERSED (IVP). NARRATIVE: - Right femoral artery access. Left heart catheterization. A 4FMultipack PIG (diagnostic) catheter was advanced to the ascending aorta. The catheter was advanced across the aortic valve. Pressure was recorded in the aorta and left ventricle. Ventriculography was performed using power injection of contrast agent. 30 degree MEJÍA images were obtained. Post-ventriculography LV pressure was obtained. The catheter was gradually withdrawn into the aorta under continuous pressure monitoring and aortic pressure was recorded. Left and right coronary angiography. A 4F Multipack JL4 (diagnostic) , 4F Multipack JR4 (diagnostic) catheter was advanced to the ascending aorta , , and positioned in the vessel ostia. Digital angiography was performed in multiple projections using hand-injection of contrast. Arterial hemostasis was obtained by deployment of Angioseal. Cardiac structures: VENTRICULOGRAPHY: Global left ventricular function was hypercontractile. EF estimated by contrast ventriculography was 70 %. Coronary and graft angiography: LEFT ANTERIOR DESCENDING AND BRANCHES: Proximal LAD: The vessel was large. Angiography showed mild diffuse atherosclerosis. Mid LAD: There was a diffuse 100 % stenosis : KAYE grade1 flow though the vessel (slow flow without perfusion). Was amenable to angioplasty. LEFT CIRCUMFLEX AND BRANCHES: Circumflex: The vessel was medium-sized. Angiography showed mild diffuse disease. RIGHT CORONARY AND BRANCHES: RCA: The vessel was very large (dominant) and moderately ectatic. Angiography showed mild diffuse disease. IMPRESSIONS: There was severe 1 -vessel coronary artery disease ( 100 % LAD). Coronary Interventions: FIRST LESION: First lesion Summary: A successful balloon angioplasty with drug eluting stent was performed on the 100 % lesion in the mid LAD. Following intervention there was an excellent angiographic appearance with a 0 % residual stenosis. The residual lesion was diffuse. Following the procedure, the intervention site exhibited KAYE 3 flow. First lesion intervention detail: Procedures: Balloon angioplasty was performed with a 2.5 x 20mm Maverick2 RX balloon. A 3.0mm x 18mm Xience V RX stent was deployed. Second lesion summary: A successful drug eluting stent was performed onthe 75 % lesion in the mid LAD. Following intervention there was anexcellent angiographic appearance with a 0 % residual stenosis. Second lesion intervention detail: Procedures: A 3.0mm x 12mm Xience V RX stent was deployed. Condition1: --- Pressure mmHg Rate dPdt AO 128-S/ 83-D, 104-M 82 BPM LV 149-S/ 5-BD, 9-ED 90 BPM 2200 AOp 126-S/ 75-D, 97-M 76 BPM PBa 135-S/ 76-D, 103-M 81 BPM UD1 138-S/ 79-D, 104-M 82 BPM PBv 145-S/ 4-BD, 10-ED 86 BPM 1860 Prepared and Electronically Authenticated Matt Jones MD Confirmed September 18, 2008 16:38:34 us Matt Jones MD FLUOROSCOPY ORDERABLES Final Result INTERFACE SYSTEM Refer to clinic/hospital department * (ABNORMAL) PROTIME-INR (09/18/2008 1:00 PM CDT) PROTIME 12.6(L) 12.7 - 15.1 Seconds [facility] INR 0.9 0.9 - 1.1 [facility] Comment: INR Therapeutic Range: Adult: ?? 2.0 - 3.0 for pulmonary embolism or prophylaxis against venous ?thrombosis or systemic embolization. 2.0 - 3.0 for patients with tissue heart valves. 2.5 - 3.5 for patients with mechanical heart valves or post PR. Pediatric ??(12 years and under): 1.5 - 3.0 Although the target range in children is not well established, ?INR values of 1.5 - 3.0 are recommended for most patients. ?Higher values have been used in children with prosthetic ?cardiac valves and hereditary clotting disorders. Union (<3 days) therapeutic ranges have not been established. Blood specimen (specimen) 09/18/2008 1:00 PM CDT 09/18/2008 1:11 PM CDT us Matt Jones MD HEMATOLOGY ORDERABLES Final Result INTERFACE SYSTEM Refer to clinic/hospital department [facility] CLIA# [id number] [address] [place] [address] documented in this encounter Visit Diagnoses Diagnosis Unspecified essential hypertension documented in this encounter
== END 2024-07-29 08:13 | disposition home or self-care (01) ==
LOC: ANHSURGERY 08:16
PROVIDERS: PCP Family Medicine; Visit Provider Podiatrist Foot & Ankle Surgery
DX: I10 Essential (primary) hypertension (principal); Z01.818 Encounter for other preprocedural examination
CPT/HCPCS: 93005

== ENCOUNTER 2024-08-01 02:26 | Day surgery (SDC) | payer MEDICARE, SELFPAY ==
--- NOTE | 2024-07-25 10:36 | PC.NURSE ---
Report to the Outpatient Waiting Room, entrance under the green pavilion located off [facility], at time __6 AM on date _08/01/24 . Planned Procedure Time: ___7:30 AM .? Time changes happen often and if your time is changed the preop area will call you the afternoon before. - You and your visitor will be asked to self-screen and do not enter if you have any COVID symptoms. Please call surgeon if you need to reschedule. - A mask is optional within the hospital at this time. Patients may have clear liquids (water, carbonated beverages, clear teas, apple juice) until 3 hours prior to surgery( 4:30AM) with a maximum of 20 ounces. - No food from midnight until time of surgery and no smoking. This includes no chewing gum, candy or mints. Take only the following medications with a SIP of water on the morning of surgery: __NONE DO NOT STOP ANY OF YOUR OTHER PRESCRIPTION MEDICATIONS PRIOR TO SURGERY EXCEPT THE FOLLOWING Medications to discontinue per physician __HOLD ALL VITAMINS 3 DAYS PRE OP ASPIRIN PER DR MASON Date to take last dose__07/28/24 Please no make-up, nail vietnamese, hairspray, perfume, deodorant, or body powder the day of surgery.? No jewelry (including any body piercings) or valuables the day of surgery, leave them at home.? Please take a shower or bath the night before, or the morning of, surgery with an antibacterial soap.? Wear comfortable, loose fitting clothing.? Children are encouraged to wear pajamas. - Jewelry must be removed prior to entering the operating room.? Rings and piercings that are not removed may be cut off. - The hospital will not accept responsibility for valuables.? - Please leave all valuables, including medications, at home the day of surgery. If you are going home after surgery, a licensed route sales driver must drive you home.? - NO public transportation without another adult if you receive anesthesia. - We recommend that an adult stay with you for 24 hours following discharge. - We also recommend that you do not drive, make important decision, drink alcoholic beverages, or take any drugs that were not prescribed by your health care provider for at least 24 hours after your discharge time. For Pediatric surgeries, we recommend two adults accompany the child home. Follow any additional instructions given to you from your surgeon. Telephone instructions given to __PATIENT and asked if any additional questions and then verbalized understanding. Patient advised to call surgeon office or pre surgery nurse liaison [phone] if any additional questions.
[2024-07-25 10:51] VITALS: BMI 25.8
[2024-08-01] VITALS (9 sets, daily range): BP systolic 120–157; BP diastolic 76–100; PULSE 69–82; RESP 12–20; TEMP 36.3–36.7; O2SAT 97–100; BMI 26.2
--- NOTE | ~2024-08-01 | XR_ITS ---
EXAMINATION: XR surgery orthopedic DATE: 08/01/2024 08:22 INDICATION: Left first metatarsophalangeal arthrodesis. TECHNIQUE: 2 images of the left forefoot were obtained during procedure performed by Dr. Hardy. Ra diologist was not present for the imaging or procedure. The amount of fluoroscopy time used during th is procedure was 0.4 minutes. COMPARISON: None. FINDINGS: Left first metatarsophalangeal arthrodesis in essentially anatomic alignment which is fixed with angélica ulated compression screw and a dorsal plate-screw fixation. Osteotomy/bunionectomy at the medial head of the first metatarsal. There is some overlying soft tissue swelling. No fractures. Mild osteoarthr itis at a few of the interphalangeal joints. IMPRESSION: 1. Expected appearance post bunionectomy and instrumented first metatarsophalangeal arthrodesis. See procedure note for further detail. Reviewed, dictated and finalized at location B. NSION COURSE COUNSELOR IMPRESSION: 1. Expected appearance post bunionectomy and instrumented first metatarsophalan geal arthrodesis. See procedure note for further detail.
--- OUTSIDE RECORDS SUMMARY | 2024-08-01 02:30 | XMS_ITS | Referral Summary ---
Author Organization [facility] Address [address] [facility] [place] [address] Care Team Providers Care Distribution Designer Name Role Phone Peter Hernández MD Primary Care Provider [phone] [facility],non-owned Affiliates and Associated Physician Practices is amultiple site organization consisting of ambulatory clinics and hospital sitesin [place], [place], [place] and [place]. This disclosure is being madepursuant to the Care Everywhere program and may not contain all information available regarding this patient. Last updated 18.[facility] Social History Tobacco Use Types Packs/Day Years Used Date Smoking Tobacco: Never Assessed Sex and Gender Information Value Date Recorded Sex Assigned at Not on file Gender Identity Not on file Sexual Orientation Not on file Plan of Treatment Not on file Care Teams Distribution Designer Relationship Specialty Start Date End Date Peter Hernández MD [address] [place] [address] PCP - General 11/10/09
--- OUTSIDE RECORDS SUMMARY | 2024-08-01 02:30 | XMS_ITS | Encounter Summary ---
Author Organization [facility] Address 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 [address] [email or web address] Cardiac Catheterization Comprehensive Report Patient: ?Jimbo Gray Study ID: ? [id number] Gender: ? M : ?1950 Age: ?58 years Race: ? 1 Room: Bed: Height: ? 65 in ( 165.1 cm ) Study Date: ? September 18, 2008 Patient status: Outpatient Weight: ? 165 lb ( 75 kg ) Access. #: ?[id number] POC: Attending MD: ?? Yumiko Hurst MD: [...] was performed with a 2.5 x 20mm Austin 2 RX balloon. A 3.0mm x 18mm [...] 16:38:34 Procedure Note Provider, Historical - 09/18/2008 [facility] [address] [place] [address] [email or web address] Cardiac Catheterization Comprehensive Report Patient: Jimbo Gray Study ID: [id number] Gender: M : 1950 Age: 58 years Race: 1 Room: Bed: Height: 65 in ( 165.1 cm ) Study Date: September 18, 2008 Patient status: Outpatient Weight: 165 lb ( 75 kg ) Access. #: [id number] POC: Attending MD: Yumiko Hurst MD: Yumiko [...] CDT) PROTIME 12.6(L) 12.7 - 15.1 Seconds [facility] INR 0.9 0.9 - 1.1 [facility] Comment: INR Therapeutic Range: Adult: ?? 2.0 - 3.0 for pulmonary embolism or prophylaxis against venous ?thrombosis or systemic embolization. 2.0 - 3.0 for patients with tissue heart valves. 2.5 - 3.5 for patients with mechanical heart valves or post [place]. Pediatric ??(12 years and under): 1.5 - 3.0 Although the target range in children is not well established, ?INR values of 1.5 - 3.0 are recommended for most patients. ?Higher values have been used in children with prosthetic ?cardiac valves and hereditary clotting disorders. Kaycee (<3 days) therapeutic ranges have not been established. Blood specimen (specimen) 09/18/2008 1:00 PM CDT 09/18/2008 1:11 PM CDT us Matt Jones MD HEMATOLOGY ORDERABLES Final Result INTERFACE SYSTEM Refer to clinic/hospital department [facility] CLIA# [id number] [address] [place] [address] documented in this encounter Visit Diagnoses Diagnosis Unspecified essential hypertension documented in this encounter
--- OUTSIDE RECORDS SUMMARY | 2024-08-01 02:30 | XMS_ITS | Clinical Summary ---
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
--- OUTSIDE RECORDS SUMMARY | 2024-08-01 02:30 | XMS_ITS | Clinical Summary ---
Author Organization [facility] Address [address] [place] [address] Care Team Providers Care Regional Company Flatbed Truck Driver Name Role Phone Peter Hernández MD Primary Care Provider [phone] Source Comments [facility],non-owned Affiliates and Associated Physician Practices is amultiple site organization consisting of ambulatory clinics and hospital sitesin [place], [place], [place] and [place]. This disclosure is being madepursuant to the Care Everywhere program and may not contain all information available regarding this patient. Last updated 18.[facility] Social History Tobacco Use Types Packs/Day Years [...] age to complete this topic Care Teams Regional Company Flatbed Truck Driver Relationship Specialty Start Date End Date Peter Hernández MD [address] [place] [address] PCP - General 11/10/09
--- OUTSIDE RECORDS SUMMARY | 2024-08-01 02:30 | XMS_ITS | Encounter Summary ---
Author Organization [facility] Address [address] [place] [address] Care Team Providers Care Human Resources Vice President Name Role Phone Peter Hernández MD Primary Care Provider [phone] Encounter Details Date Type Department Care Team (Late st Contact Info) Description 09/29/2022 Lab Requisition [facility] Care DermPath Lab [address] [place] [id number] Ryan Shelby MD [address] [place] [address] Social History Tobacco Use Types Packs/Day Years [...] CDT) Case Report Dermatopathology Report ? Case: [id number] ? Authorizing Provider: ??Ryan Shelby MD ?Collected: ? 09/27/2022 03:33 AM ? Ordering Location: ? [facility] DermPath Lab ?Received: ?09/29/2022 07:13 AM ? Pathologist: ? Vanesa Hassan MD ? Specimen: ?Skin, right med cheek ? 11:31 AM [facility] DERMATOPATHOLOGY LABORATORY Final Diagnosis Specimen A. SKIN, right med cheek: EPIDERMAL AND DERMAL NECROSIS (L98.499) (see microscopic description) 11:31 AM [facility] DERMATOPATHOLOGY LABORATORY Clinical History R/O SCC HAK 11:31 AM [facility] DERMATOPATHOLOGY LABORATORY Gross Description Specimen A: Received is one formalin filled container labeled with the patient's name and designated right med cheek. The specimen consists of three shaved biopsies measuring 5x5x1 mm, 4x3x1 mm and 1x1x1 mm. Jar 0. 11:31 AM [facility] DERMATOPATHOLOGY LABORATORY Microscopic Description Specimen A. SKIN, right med cheek: There is full thickness epidermal necrosis and dermal necrosis beneath which there are vascular proliferation, fibroblasts, and an edematous stroma. There is no evidence of epithelial dysplasia or malignancy in the sections examined. 11:31 AM [facility] DERMATOPATHOLOGY [facility]ORATORY Disclaimer An external and internal positive and negative controls are appropriate for the histochemical, immunohistochemical and immunofluorescence stain(s) in this case (if any), except where stated explicitly. The performance characteristics of the stain(s) cited in this report were developed and its performance characteristic determined by the Dermatopathology Laboratory at [facility], directed by Dr. Jc Ibarra. These tests need not be, and therefore are not, approved by the [place] Food and Drug Administration. The tests are used for clinical purposes. Billing Codes Specimen Charges Stain Charges 46356 1 3 11:31 AM CDT DERMATOPATHOLOGY LABORATORY Embedded Images 3 11:31 AM CDT DERMATOPATHOLOGY LABORATORY Pathology/Cytolo gy TISSUE SPECIMEN FROM SKIN / Unknown 09/27/2022 3:33 AM CDT 09/29/2022 7:13 AM CDT Ryan Shelby MD LAB - PATHOLOGY/CYTO LOGY ORDERABLES DERMATOPATHOLOGY LABORATORY [facility] - Department of Dermatology [facility] Medicine [address] [place] [address], [address] [phone] documented in this encounter Visit Diagnoses Not on filedocumented in this encounter Care Teams Human Resources Vice President Relationship Specialty Start Date End Date Peter Hernández MD [address] [place], [place] [id number] PCP - General 11/10/09 documented as of this encounter
--- OUTSIDE RECORDS SUMMARY | 2024-08-01 02:30 | XMS_ITS | Clinical Summary ---
Author Organization [facility] [address] [place] [address] [address] [place] [address] Care Team Providers Care Motor Scooter Mechanic Name Role Phone Gris Ward MD Primary [...] breath 11/14/2022 Coronary artery disease invo lving cachil dehe coronary artery of cachil dehe heart without angina pectoris 10/04/2017 Presence of stent in coronary artery 10/04/2017 History of TIA (transient ischemic attack) 10/04 History of idiopathic seizure 10/04/2017 Encounters Date Type Department Care Team Description 07/10/2024 Telephone [facility] Cardiology [address] [place] [address] Neftali Layton MD Medical Clearance [...] on file 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
--- OUTSIDE RECORDS SUMMARY | 2024-08-01 02:30 | XMS_ITS | Patient Health Summary ---
Author Organization [facility] Address [address] [place] [address] Care Team Providers Care Medical Diagnostic Radiographer Name Role Phone Peter Hernández MD Primary Care Provider [phone] Note from [facility],non-owned Affiliates and Associated Physician Practices is amultiple site organization consisting of ambulatory clinics and hospital sitesin [place], [place], [place] and [place]. This disclosure is being madepursuant to the Care Everywhere program and may not contain all information available regarding this patient. Last updated 18.[facility] Social History Tobacco Use Types Packs/Day [...] included. Case Report Dermatopathology Report ? Case: [id number] ? Authorizing Provider: ??Ryan Shelby MD ?Collected: ? 09/27/2022 03:33 AM ? Ordering Location: ? [facility] DermPath Lab ?Received: ?09/29/2022 07:13 AM ? Pathologist: ? Vanesa Hassan MD ? Specimen: ?Skin, right med cheek ? 11:31 AM [facility] DERMATOPATHOLOGY LABORATORY Final Diagnosis Specimen A. SKIN, right med cheek: EPIDERMAL AND DERMAL NECROSIS (L98.499) (see microscopic description) 11:31 AM [facility] DERMATOPATHOLOGY LABORATORY Clinical History R/O SCC HAK 11:31 AM [facility] DERMATOPATHOLOGY LABORATORY Gross Description Specimen A: Received is one formalin filled container labeled with the patient's name and designated right med cheek. The specimen consists of three shaved biopsies measuring 5x5x1 mm, 4x3x1 mm and 1x1x1 mm. Jar 0. 11:31 AM [facility] DERMATOPATHOLOGY LABORATORY Microscopic Description Specimen A. SKIN, right med cheek: There is full thickness epidermal necrosis and dermal necrosis beneath which there are vascular proliferation, fibroblasts, and an edematous stroma. There is no evidence of epithelial dysplasia or malignancy in the sections examined. 11:31 AM [facility] DERMATOPATHOLOGY LABORATORY Disclaimer An external and internal positive and negative controls are appropriate for the histochemical, immunohistochemical and immunofluorescence stain(s) in this case (if any), except where stated explicitly. The performance characteristics of the stain(s) cited in this report were developed and its performance characteristic determined by the Dermatopathology Laboratory at [facility], directed by Dr. Jc Ibarra. These tests need not be, and therefore are not, approved by the [place] Food and Drug Administration. The tests are used for clinical purposes. Billing Codes Specimen Charges Stain Charges 62058 1 3 11:31 AM CDT DERMATOPATHOLOGY LABORATORY Embedded Images 3 11:31 AM CDT DERMATOPATHOLOGY LABORATORY Pathology/Cytolo gy TISSUE SPECIMEN FROM SKIN / Unknown 09/27/2022 3:33 AM CDT 09/29/2022 7:13 AM CDT Ryan Shelby MD LAB - PATHOLOGY/CYTO LOGY ORDERABLES DERMATOPATHOLOGY LABORATORY [facility] - Department of Dermatology [facility] Medicine [address] [place] [address], [address] [phone] Care Teams Medical Diagnostic Radiographer Relationship Specialty Start Date End Date Peter Hernández MD [address] [place] [address] PCP - General 11/10/09
--- OUTSIDE RECORDS SUMMARY | 2024-08-01 02:30 | XMS_ITS | Encounter Summary ---
Author Organization [facility] Address [address] [place] [address] Care Team Providers Care Conveyor Line Battery Charger Name Role Phone Peter Hernández MD Primary Care Provider [phone] Encounter Details Date Type Department Care Team (Late st Contact Info) Description 05/03/2022 Lab Requisition [facility] Care DermPath Lab [address] [place] [id number] Ryan Shelby MD [address] [place] [address] Social History Tobacco Use Types Packs/Day Years [...] CDT) Case Report Dermatopathology Report ? Case: [id number] ? Authorizing Provider: ??Ryan Shelby MD ?Collected: ? 05/02/2022 12:00 AM ? Ordering Location: ? [facility] DermPath Lab ?Received: ?05/03/2022 01:09 PM ? 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 The specimen consists of a shave biopsy measuring [id number]. Jar 0. Specimen B: Received is one formalin filled container labeled with the patient's name and designated left forehead. The specimen consists of a shave biopsy measuring [id number]. Jar 0. Specimen C: Received is one formalin filled container labeled with the patient's name and designated lat to left ala on cheek. The specimen consists of a shave biopsy measuring 4u3i2hi. Jar 0. Specimen D: Received is one formalin filled container labeled with the patient's name and designated right lateral cheek. The specimen consists of a shave biopsy measuring [id number]. Jar 0. 2 6:02 PM [facility] DERMATOPATHOLOGY LABORATORY Microscopic Description Specimen A. SKIN, [...] characteristic determined by the Dermatopathology Laboratory at [facility], directed by Dr. Jc Ibarra. These tests need not be, and therefore are not, approved by the [place] Food and Drug Administration. The tests are used for clinical purposes. Billing Codes Specimen Charges Stain Charges 83004 04292 61231 61103 1 1 1 1 12472 1 2 6:02 PM CDT DERMATOPATHOLOGY LABORATORY [...] LAB - PATHOLOGY/CYTO LOGY ORDERABLES DERMATOPATHOLOGY LABORATORY [facility] - Department of Dermatology [facility] Specialized Medicine [address] [place] [address], [address] [phone] documented in this encounter Visit Diagnoses Not on filedocumented in this encounter Care Teams Conveyor Line Battery Charger Relationship Specialty Start Date End Date Peter Hernández MD [address] [place] [address] PCP - General 11/10/09 documented as of this encounter
--- OUTSIDE RECORDS SUMMARY | 2024-08-01 02:30 | XMS_ITS | Referral Summary ---
Author Organization [facility] [address] Address [address] [place] [address] Care Team Providers Care E Commerce Analyst Name Role Phone Gris Ward MD Primary Care Provider Encounters Date Type Department Care Team Description 07/10/2024 Telephone [facility] Cardiology [address] [place] [address] Neftali Layton MD Medical Clearance [...] breath 11/14/2022 Coronary artery disease invo lving ak chin coronary artery of ak chin heart without angina pectoris 10/04/2017 Presence of [...] on file 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
[2024-08-01] MEDS: LACTATED RINGERS 1,000 ML 30 ML IV CONT ×2 (07:00→08:29)
--- NOTE | 2024-08-01 07:13 | WPDANESEPPF ---
Anes - Initial Pre Proc Eval Procedure: Operation Date: 08/01/24 07:30 Proposed Procedures p Arthrodesis of First Metatarsophalangeal Joint Left Foot - Cristobal Hardy Jr., DPM Date/Time: 08/01/24 07:13 Surgeon: Cristobal Hardy Jr., DPM Pre Op Diagnosis: bunion left foot Patient Data Age: 74 Gender: M Height: 1.65 m Weight: 71.4 kg Last Vital Signs Temp 36.7 C 08/01/24 06:07 Pulse 69 08/01/24 06:07 Resp 16 08/01/24 06:07 BP 143/83 H 08/01/24 06:07 Pulse Ox 100 08/01/24 06:07 O2 Del Method Room Air 08/01/24 06:07 Allergies Allergy/AdvReac Type Severity Reaction Status Date / Time No Known Allergies Allergy Unknown Verified 08/01/24 06:04 Home Medications ?Medication ?Instructions ?Recorded ?Confirmed ?Type finasteride 5 mg tablet 5 mg PO DAILY 05/04/22 08/01/24 History lisinopril 20 mg tablet 20 mg PO DAILY #90 tabs 02/15/24 08/01/24 Rx sildenafil 100 mg tablet 100 mg PO .PRN #30 tabs 03/06/24 07/25/24 Rx atorvastatin 40 mg tablet 40 mg PO QHS #90 tabs 03/07/24 08/01/24 Rx aspirin 81 mg capsule 81 mg PO .QOD 04/01/24 08/01/24 History omeprazole 20 mg capsule,delayed 20 mg PO QAM #90 caps 05/08/24 08/01/24 Rx release multivitamin (Daily Multi-Vitamin 1 tablet PO DAILY 07/25/24 08/01/24 History tablet) Patient hx anesthesia problems: none Family hx anesthesia problems: none Results Review: All pre-operative results and documents have been reviewed as part of the pre-operative evaluation. [facility] Past Medical History Medical History Essential (primary) hypertension Vitamin B12 deficiency BPH loc w/o ur obs/LUTS GERD without esophagitis Vitamin D deficiency Diverticulosis large intestine w/o perforation or abscess w/o bleeding Diverticulitis of small intestine with perforation without abscess or bleeding (~12/2021) History of coronary stenosis Cervical spondylosis Coronary artery disease involving makah coronary artery of makah heart Dyslipidemia Elevated PSA Erectile dysfunction Seizures (~12/2016) off keppra since 2021, no seizures Skin cancer (~2009) Surgical History Surgical History History of esophageal dilatation (~10/2021) x2 - 10/2021, 06/2023 History of colonoscopy with polypectomy History of left inguinal hernia repair (~2015) 2016 History of coronary artery stent placement (~2009) 2009 Family History Family History Mother Family history of cardiac disorder Father Family history of coronary artery disease Family history of cardiovascular disease Grandparent Family history of cardiovascular disease Social History Social History Smoking status: Never smoker Alcohol intake: current Drinks per week: 2 Substance use: never Substance use type: does not use Lack of Transportation: No Lack of Food: Never True Current Housing: I Have Housing Concerned About Future Housing: No Difficulty Paying Gas/Electric Bills: No Difficulty Paying for Meds: No Currently Unemployed: No Education: Bachelor's Degree Difficulty w/ Childcare or Family Care: No Living arrangements: with family Additional living arrangements comments: Occupation/Education: retired Gender identity (if verbalized by the patient): Male Sexual Orientation (if Verbalized by the Patient): Straight or Heterosexual Spiritual care concerns: No Agree to blood products: Yes Anes - Eval Final PreProcedure Day of Procedure 08/01/24 07:13 Patient weight: overweight Heart: regular rate and rhythm Lungs: clear to auscultation Airway: Mallampati scale class II Neurological: alert and oriented Last oral intake: >/= 8 hours ASA classification: III Emergent: no Anesthetic plan: proceed Anesthesia type and monitoring: general LMA and standard monitoring Results Review: All pre-operative results and documents have been reviewed as part of the pre-operative evaluation. Informed Consent: The patient's anesthetic plan and its attendant risks and benefits were discussed with the patient/family/POA. Questions were solicited and answers provided to the satisfaction of the patient/family/POA.
--- NOTE | 2024-08-01 07:15 | WPDHPUPDATE1 ---
History and Physical Update Update Date/Time: 08/01/24 07:15 History and Physical has been reviewed, including an updated exam of the patient. There are NO changes in the patient's condition. Risks, benefits, and alternatives have been discussed and questions answered. Patient agrees to proceed with procedure.
[2024-08-01] MEDS: ceFAZolin 2 GM/D5W 50 ML 2 GM/50 ML BAG IVPB (07:23)
--- NOTE | 2024-08-01 07:23 | WPDHPUPDATE1 ---
History and Physical Update Update Date/Time: 08/01/24 07:23 History and Physical has been reviewed, including an updated exam of the patient. There are NO changes in the patient's condition. Risks, benefits, and alternatives have been discussed and questions answered. Patient agrees to proceed with procedure.
[2024-08-01] MEDS: LIDOCAINE 2% LOCAL INJ 20 ML VIAL 10 ML INFILTRATE (07:48)
[2024-08-01] MEDS: BUPivacaine HCL 0.5% 10 ML AMP INFILTRATE (07:49)
--- NOTE | 2024-08-01 08:36 | P.OP_ITS ---
Procedure Note - Detailed Date of Procedure 08/01/24 Pre-op Diagnosis Bunion left foot Post-op Diagnosis Same Procedure Performed Arthrodesis of the 1st metatarsal phalangeal joint left foot Surgeon Cristobal Hardy Jr., [facility] Anesthesia General and Local Indications Painful left forefoot Description of Procedure PROCEDURE IN DETAIL: Under mild sedation, the patient was brought into the operating room, placed on the operating table in supine position. A pneumatic ankle tourniquet was placed about the patient's ipsilateral ankle. Following general anesthesia and a Veliz Block with 20ccs of 2% Lidocaine plain and 0.5% Marcaine plain, the foot was then scrubbed, prepped, and draped in the usual aseptic manner. An Esmarch bandage was then used to exsanguinate the patient's foot and the pneumatic ankle tourniquet was then inflated. Surgery began in the following manner: Attention was directed to the dorsal medial aspect of the 1st metatarsophalangeal joint where there was a large osseous prominence noted. The incision was made starting along the central shaft of the 1st metatarsal and extending just proximal to the interphalangeal joint of the hallux. The incision was continued deep down through the subcutaneous tissues using sharp and blunt dissection. All bleeders were cauterized as necessary. At this point, the dissection was continued down to the level of the periosteum and capsular structures overlying the 1st metatarsophalangeal joint. A full length periosteum and capsular incision was made just medial to the extensor hallucis longus tendon. The periosteum and capsular structures were freed from the base of the proximal phalanx as well as the distal 1st metatarsal. At this point, the 1st metatarsophalangeal joint was identified. There was loss of articular cartilage to the head of the 1st metatarsal as well as the base of the proximal phalanx worse centrally and medially. There was significant broadening and hypertrophy of the 1st metatarsophalangeal joint. Utilizing a sagittal bone saw, the hypertrophied 1st metatarsal was resected dorsally, medially, and laterally. A power bur was used to make sure that there were no rough edges and also to further debride the hypertrophic 1st metatarsal. Next, a rongeur was used to resect the hypertrophic base of the proximal phalanx. At this point, the reamer system for the Maxforce plate system was used to denude the degenerative cartilage from the head of the 1st metatarsal as well as the base of the proximal phalanx. The cartilage and subchondral bone were fully debrided utilizing the reamer system until healthy bleeding bone was noted. Next, a 2-0 drill bit was used to further fenestrate the head of the 1st metatarsal as well as the base of the proximal phalanx in order to allow fusion across the 1st metatarsophalangeal joint. Next, a guide wire for a 3.0 headless Arthrex compression screw was driven from the medial aspect of the base of the proximal phalanx into the head of the 1st metatarsal in order to serve as temporary fixation, next the cannulated screw was driven and provided excellent compression. Next A large steel plate was used to make sure that the hallux was in a rectus position both in the sagittal plane as well as the frontal plane. Excellent position of the hallux was noted. Next, a Maxforce plate was placed atop the 1st metatarsophalangeal joint held in position with [place] wires. Utilizing standard principles and techniques, the distal drill holes were drilled and three 3.0 mm fully-threaded locking screws were driven from dorsal to plantar holding the distal aspect of the plate intact. At this point, the Maxforce compression system was utilized from dorsal distal to proximal plantar across the 1st metatarsophalangeal joint with excellent compression noted. Next, a 3.0mm locking screw was used to further compress the joint along the oblong dynamic compression screw slot. Next, the remaining proximal drill holes were drilled from dorsal to plantar across and a 3.0 mm locking screws were driven from dorsal to plantar. The wound site was then flushed with copious amounts of sterile saline. Fluoroscopy was used to make sure that the plate was appropriately aligned and oriented and also to make sure that the screws were of appropriate length and orientation. Excellent position of the 1st metatarsophalangeal joint was visualized in all planes. Next, the periosteum and capsular structures were reapproximated with 3-0 Vicryl. Next, the subcutaneous structures were reapproximated with 4-0 Vicryl. Next, the skin was reapproximated and coapted utilizing 4-0 Monocryl in running subcuticular suture fashion technique. Upon completion of the procedure, the incision was dressed with Steri-Strips, Adaptic, 4x4s, Kerlix, and Coban. The pneumatic ankle tourniquet was then deflated and a prompt hyperemic response was noted to all digits of the foot. A posterior splint was then applied to the affected lower extremity. It is important to note that Dr. Hardy was present throughout the procedure. The patient did very well with the procedure and the anesthesia. The patient was transferred to the recovery room with vital signs stable and vascular status intact to all toes of the foot. Following a period of postoperative monitoring, the patient will be discharged home on the following written and oral postoperative instructions: 1. Keep the dressing clean, dry, and intact. 2. The patient to be strictly nonweightbearing with a knee scooter or crutches. 3. The patient should ice and elevate the foot when at rest. 4. The patient should contact Dr. Hardy for all postop care and if any problems should arise. 5. Prescriptions were written for Percocet 5/325, dispensed 40 to be taken 1 p.o. q.4-6 hours as needed for severe pain. Furthermore, the patient should also take Xarelto 10 mg to be taken 1 p.o. daily starting 24 hours after surgery to prevent DVT for 14 days followed by one 325 mg aspirin until walking is re-initiated. Implants Arthrex Maxforce plate with four 3.0mm locking screws and one 3.5mm Arthrex headless screw Estimated Blood Loss 1 Drains No Packing No Pathology None sent Complications No immediate complications Condition Stable Disposition Same day
== END 2024-08-01 10:26 | disposition home or self-care (01) ==
PROVIDERS: PCP Family Medicine; Visit Provider Podiatrist Foot & Ankle Surgery
PROC: (CPT 28750; principal; 2024-08-01 07:30)
DX: M21.612 Bunion of left foot (principal); M20.12 Hallux valgus (acquired), left foot; I10 Essential (primary) hypertension; E78.00 Pure hypercholesterolemia, unspecified; I25.10 Atherosclerotic heart disease of native coronary artery without angina pectoris; N52.9 Male erectile dysfunction, unspecified; N40.0 Benign prostatic hyperplasia without lower urinary tract symptoms; E53.8 Deficiency of other specified B group vitamins; K21.9 Gastro-esophageal reflux disease without esophagitis; E55.9 Vitamin D deficiency, unspecified; M19.072 Primary osteoarthritis, left ankle and foot; M43.02 Spondylolysis, cervical region; R56.9 Unspecified convulsions; Z79.82 Long term (current) use of aspirin; Z98.890 Other specified postprocedural states; Z95.5 Presence of coronary angioplasty implant and graft; Z87.19 Personal history of other diseases of the digestive system; Z86.79 Personal history of other diseases of the circulatory system; Z85.828 Personal history of other malignant neoplasm of skin; Z82.49 Family history of ischemic heart disease and other diseases of the circulatory system
CPT/HCPCS: 28750; 93005; 99199; C1713; J0690; J1100; J2003; J2405; J2704; J3010; J7120

== ENCOUNTER 2024-10-07 00:12 | Day surgery (SDC) | payer MEDICARE, SELFPAY ==
[2024-09-30 09:10] VITALS: BMI 25.8
--- OUTSIDE RECORDS SUMMARY | 2024-10-07 00:15 | XMS_ITS | Referral Summary ---
Author Organization [facility] [place] [place] [address] [facility] [address] Address [address] [place] [address] Care Team Providers Care Tack Coverer Name Role Phone Gris Ward MD Primary Care Provider Encounters Date Type Department Care Team Description 07/10/2024 Telephone [facility] Cardiology [address] [place] [address] Neftali Layton MD Medical Clearance [...] breath 11/14/2022 Coronary artery disease invo lving upper [place] coronary artery of upper [place] heart without angina pectoris 10/04/2017 Presence of [...] on file 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
--- OUTSIDE RECORDS SUMMARY | 2024-10-07 00:15 | XMS_ITS | Clinical Summary ---
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
--- OUTSIDE RECORDS SUMMARY | 2024-10-07 00:15 | XMS_ITS | Encounter Summary ---
Author Organization [facility] Address [address] [place] [address] Care Team Providers Care Furrier Shop Supervisor Name Role Phone Peter Hernández MD Primary Care Provider [phone] Encounter Details Date Type Department Care Team (Late st Contact Info) Description 05/03/2022 Lab Requisition [facility] DermPath Lab [address] [place] [address] [place] [address] Social History Tobacco Use Types Packs/Day Years [...] 12:00 AM CDT) Case Report Dermatopathology Report Case: [id number] Authorizing Provider: Ryan Shelby MD Collected: 05/02/2022 12:00 AM Ordering Location: [facility] DermPath Lab Received: 05/03/2022 01:09 PM Pathologist: Marci Pardo MD Specimens: A) - Skin, left frontal scalp B) - Skin, left forehead C) - Skin, lat to left ala on cheek D) - Skin, right lateral cheek 2 6:[address] [facility] DERMATOPATHOLOGY LABORATORY Final Diagnosis Specimen A. SKIN, left frontal scalp: ACTINIC KERATOSIS, LICHENOID (L57.0) Specimen B. SKIN, left forehead: ACTINIC KERATOSIS (L57.0) (see microscopic description) Specimen C. SKIN, lat to left ala on cheek: BASAL CELL CARCINOMA, KERATOTIC TYPE (C44.319) Specimen D. 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 DERMATOPATHOLOGY LABORATORY Clinical History A-D: R/O SCC, BCC 2 6:[address] [facility] DERMATOPATHOLOGY LABORATORY Gross Description Specimen A: Received is one formalin filled container labeled with the patient's name and designated left frontal scalp. The specimen consists of a shave biopsy measuring 5o6h9zf. Jar 0. Specimen B: Received is one formalin filled container labeled with the patient's name and designated left forehead. The specimen consists of a shave biopsy measuring 6x0o8yg. Jar 0. Specimen C: Received is one formalin filled container labeled with the patient's name and designated lat to left ala on cheek. The specimen consists of a shave biopsy measuring 1u1i6ob. Jar 0. Specimen D: Received is one formalin filled container labeled with the patient's name and designated right lateral cheek. The specimen consists of a shave biopsy measuring 3a9i5lc. Jar 0. 2 6:[address] [facility] DERMATOPATHOLOGY LABORATORY Microscopic Description Specimen [...] characteristic determined by the Dermatopathology Laboratory at [facility], directed by Dr. Jc Ibarra. These tests need not be, and therefore are not, approved by the [place] Food and Drug Administration. The tests are used for clinical purposes. Billing Codes Specimen Charges Stain Charges 84465 57018 09867 69878 1 1 1 1 29730 1 2 6:02 PM CDT DERMATOPATHOLOGY LABORATORY [...] LAB - PATHOLOGY/CYTO LOGY ORDERABLES DERMATOPATHOLOGY LABORATORY [facility] - Department of Dermatology [address], [address] [place] [address], [facility] [phone] documented in this encounter Visit Diagnoses Not on filedocumented in this encounter Care Teams Furrier Shop Supervisor Relationship Specialty Start Date End Date Peter Hernández MD [address] [place] [address] PCP - General 11/10/09 documented as of this encounter
--- OUTSIDE RECORDS SUMMARY | 2024-10-07 00:15 | XMS_ITS | Encounter Summary ---
Author Organization [facility] Address [address] [place] [address] Care Team Providers Care Sweatband Decorating Machine Operator Name Role Phone Peter Hernández MD Primary Care Provider [phone] Encounter Details Date Type Department Care Team (Late st Contact Info) Description 09/29/2022 Lab Requisition [facility] DermPath Lab [address] [place] [address] Ryan [place] [address] Social History Tobacco Use Types Packs/Day Years [...] 3:33 AM CDT) Case Report Dermatopathology Report Case: [id number] Authorizing Provider: Ryan Shelby MD Collected: 09/27/2022 03:33 AM Ordering Location: [facility] DermPath Lab Received: 09/29/2022 07:13 AM Pathologist: Vanesa Hassan MD Specimen: Skin, right med cheek 11:31 AM CDT DERMATOPATHOLOGY LABORATORY Final Diagnosis Specimen A. SKIN, right med cheek: EPIDERMAL AND DERMAL NECROSIS (L98.499) (see microscopic description) 3 11:31 AM CDT DERMATOPATHOLOGY LABORATORY Clinical History R/O SCC HAK 3 11:31 AM CDT DERMATOPATHOLOGY LABORATORY Gross Description Specimen A: Received is one formalin filled container labeled with the patient's name and designated right med cheek. The specimen consists of three shaved biopsies measuring 5x5x1 mm, 4x3x1 mm and 1x1x1 mm. Jar 0. 3 11:31 AM CDT DERMATOPATHOLOGY LABORATORY Microscopic Description Specimen A. SKIN, right med cheek: There is full thickness epidermal necrosis and dermal necrosis beneath which there are vascular proliferation, fibroblasts, and an edematous stroma. There is no evidence of epithelial dysplasia or malignancy in the sections examined. 3 11:31 AM CDT DERMATOPATHOLOGY LABORATORY Disclaimer An external and internal positive and negative controls are appropriate for the histochemical, immunohistochemical and immunofluorescence stain(s) in this case (if any), except where stated explicitly. The performance characteristics of the stain(s) cited in this report were developed and its performance characteristic determined by the Dermatopathology Laboratory at [facility], directed by Dr. Jc Ibarra. These tests need not be, and therefore are not, approved by the [place] Food and Drug Administration. The tests are used for clinical purposes. Billing Codes Specimen Charges Stain Charges 54937 1 3 11:31 AM CDT DERMATOPATHOLOGY LABORATORY Embedded Images 3 11:31 AM CDT DERMATOPATHOLOGY LABORATORY Pathology/Cytolo gy TISSUE SPECIMEN FROM SKIN / Unknown 09/27/2022 3:33 AM CDT 09/29/2022 7:13 AM CDT Rayn Shelby MD LAB - PATHOLOGY/CYTO LOGY ORDERABLES DERMATOPATHOLOGY LABORATORY [facility] - Department of Dermatology [address] [phone] documented in this encounter Visit Diagnoses Not on filedocumented in this encounter Care Teams Sweatband Decorating Machine Operator Relationship Specialty Start Date End Date Peter Hernández MD [address] [place] [address] PCP - General 11/10/09 documented as of this encounter
--- OUTSIDE RECORDS SUMMARY | 2024-10-07 00:15 | XMS_ITS | Clinical Summary ---
Author Organization [facility] Address [address] [facility] [place] [address] Care Team Providers Care Hydrologic Modeler Name Role Phone Peter Hernández MD Primary Care Provider Source Comments [facility] [employer],non-owned Affiliates and Associated Physician Practices is amultiple site organization consisting of ambulatory clinics and hospital sitesin [place], [place], [place] and [place]. This disclosure is being madepursuant to the Care Everywhere program and may not contain all information available regarding this patient. Last updated 18.[facility] [employer] Encounters Date Type Department Care Team Description 08/28/2024 Lab Requisition [facility] - DermPath Lab [address] [place] [id number] Safia Rodríguez DO from Last 3 Months Social History Tobacco Use Types Packs/Day Years [...] VACCINE ( - 2023-2 5 season) 2024 DEPRESSION SCREENING 07/02/2024 MEDICARE AWV CALENDAR YEAR 2024 INFLUENZA VACCINE (Season Ended) 2025 HEPATITIS B VACCINE Aged Out No longe r eligible based on patient's age to complete this topic HIB VACCINE Aged Out No longer eligi ble based on patient's age to complete this topic HPV VACCINE Aged Out No longer eligi ble based on patient's age to complete this topic MENINGOCOCCAL (Group B) VACC INE SHARED DECISION-MAKING Aged Out No longer eligibl e based on patient's age to complete this topic MENINGOCOCCAL GROUPS A/C/Y/W VACCINE Aged Out No longer eligible b ased on patient's age to complete this topic Procedures Procedure Name Priority Date/Time Associated Diagnosis Comments DERMATOPATHOLOGY Routine 08/26/2024 12:0 0 AM HAND BRUSH FILLER from Last 3 Months Results * DERMATOPATHOLOGY (08/26/2024 12:00 AM HAND BRUSH FILLER) Case Report Dermatopathology Report Case: [id number] Authorizing Provider: Safia Rodríguez DO Collected: 08/26/2024 12:00 AM Ordering Location: [facility] - Received: 08/28/2024 07:15 AM DermPath Lab Pathologist: Rhonda Pardo MD Specimen: Skin, right shoulder 1:49 PM [facility]USH [facility]ER DERMATOPATHOLOGY LABORATORY Final Diagnosis Specimen A. SKIN, right shoulder: BLUE NEVUS, COMMON TYPE (D22.9) 1:49 PM HAND BRUSH [facility]ILLER DERMATOPATHOLOGY LABORATORY Clinical History Blue Nevus, R/O Atypia 1:49 PM HAND BRUSH FILLER DERMATOPATHOLOGY LABORATORY Gross Description Specimen A: Received is one formalin filled container labeled with the patient's name and designated right shoulder. The specimen consists of a shave biopsy measuring 8x4x1 mm. Jar 0. 1:49 PM HAND BRUSH FILLER DERMATOPATHOLOGY LABORATORY Microscopic Description Specimen A. SKIN, right shoulder: Within the dermis there are oval, spindle-shaped and dendritic melanocytes with melanophages. 1:49 PM HAND BRUSH FILLER DERMATOPATHOLOGY LABORATORY Disclaimer An external and internal positive and negative controls are appropriate for the histochemical, immunohistochemical and immunofluorescence stain(s) in this case (if any), except where stated explicitly. The performance characteristics of the stain(s) cited in this report were developed and its performance characteristic determined by the Dermatopathology Laboratory at [facility], directed by Dr. Jc Ibarra. These tests need not be, and therefore are not, approved by the [place] Food and Drug Administration. The tests are used for clinical purposes. Billing Codes Specimen Charges Stain Charges 24499 1 5 1:49 PM HAND BRUSH FILLER DERMATOPATHOLOGY LABORATORY Embedded Images 5 1:49 PM HAND BRUSH FILLER DERMATOPATHOLOGY LABORATORY Pathology/Cytolog y TISSUE SPECIMEN FROM SKIN / Unknown 08/26/2024 08/28/2024 7:15 AM HAND BRUSH FILLER Safia Rodríguez DO LAB - PATHOLOGY/C YTOLOGY ORDERABLES DERMATOPATHOLOGY LABORATORY [facility] Department of Dermatology [address], [address] [phone] from Last 3 Months Care Teams Hydrologic Modeler Relationship Specialty Start Date End Date Peter Hernández MD [address] [place] [address] PCP - General 11/10/09
--- OUTSIDE RECORDS SUMMARY | 2024-10-07 00:15 | XMS_ITS | Encounter Summary ---
Author Organization [facility] Address [address] [facility] [place] [address] Care Team Providers Care Senior Billing Consultant Name Role Phone Peter Hernández MD Primary Care Provider [phone] Encounter Details Date Type Department Care Team (Late st Contact Info) Description 08/28/2024 Lab Requisition [facility] - DermPath Lab [address] [facility], [place] [phone] Safia Rodríguez DO [address] [facility] [address] [place] [address] Social History Tobacco Use Types Packs/Day Years [...] Comments DERMATOPATHOLOGY Routine 08/26/2024 12:0 0 AM ENTRY LEVEL AUTOMOTIVE TECHNICIAN documented in this encounter Results * DERMATOPATHOLOGY (08/26/2024 12:00 AM ENTRY LEVEL AUTOMOTIVE TECHNICIAN) Case Report Dermatopathology Report Case: [id number] Authorizing Provider: Safia Rodríguez DO Collected: 08/26/2024 12:00 AM Ordering Location: [facility] Physician [facility] - Received: 08/28/2024 07:15 AM DermPath Lab Pathologist: Rhonda Pardo MD Specimen: Skin, right shoulder 1:49 PM ENTRY LEVEL AUTOMOTIVE TECHNICIAN DERMATOPATHOLOGY LABORATORY Final Diagnosis Specimen A. SKIN, right shoulder: BLUE NEVUS, COMMON TYPE (D22.9) 1:49 PM [facility] DERMATOPATHOLOGY LABORATORY Clinical History Blue Nevus, R/O Atypia 1:49 PM [facility] DERMATOPATHOLOGY LABORATORY Gross Description Specimen A: Received is one formalin filled container labeled with the patient's name and designated right shoulder. The specimen consists of a shave biopsy measuring 8x4x1 mm. Jar 0. 1:49 PM [facility] DERMATOPATHOLOGY LABORATORY Microscopic Description Specimen A. SKIN, right shoulder: Within the dermis there are oval, spindle-shaped and dendritic melanocytes with melanophages. 1:49 PM [facility] DERMATOPATHOLOGY LABORATORY Disclaimer An external and internal positive and negative controls are appropriate for the histochemical, immunohistochemical and immunofluorescence stain(s) in this case (if any), except where stated explicitly. The performance characteristics of the stain(s) cited in this report were developed and its performance characteristic determined by the Dermatopathology Laboratory at [facility], directed by Dr. Jc Ibarra. These tests need not be, and therefore are not, approved by the [place] Food and Drug Administration. The tests are used for clinical purposes. Billing Codes Specimen Charges Stain Charges 18060 1 1:49 PM [facility] DERMATOPATHOLOGY LABORATORY Embedded Images 1:49 PM [facility] DERMATOPATHOLOGY LABORATORY Pathology/Cytolog y TISSUE SPECIMEN FROM SKIN / Unknown 08/26/2024 08/28/2024 7:15 AM ENTRY LEVEL AUTOMOTIVE TECHNICIAN Safia Rodríguez DO LAB - PATHOLOGY/C YTOLOGY ORDERABLES DERMATOPATHOLOGY LABORATORY [facility] - Department of Dermatology [facility] [address] [place] [address], [address] [phone] documented in this encounter Visit Diagnoses Not on filedocumented in this encounter Care Teams Senior Billing Consultant Relationship Specialty Start Date End Date Peter Hernández MD [address] [place], [place] [id number] PCP - General 11/10/09 documented as of this encounter
--- OUTSIDE RECORDS SUMMARY | 2024-10-07 00:15 | XMS_ITS | Clinical Summary ---
Author Organization [facility] [address] [place] [address] [address] [place] [address] Care Team Providers Care Vice President Medical Affairs Name Role Phone Gris Ward MD Primary [...] breath 11/14/2022 Coronary artery disease invo lving [place] coronary artery of [place] heart without angina pectoris 10/04/2017 Presence of stent in coronary artery 10/04/2017 History of TIA (transient ischemic attack) 10/04 History of idiopathic seizure 10/04/2017 Encounters Date Type Department Care Team Description 07/10/2024 Telephone [facility] Cardiology [address] [place] [address] Neftali Layton MD Medical Clearance [...] on file 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
--- OUTSIDE RECORDS SUMMARY | 2024-10-07 00:15 | XMS_ITS | Encounter Summary ---
Author Organization [facility] Address 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 [address] [email or web address] Cardiac Catheterization Comprehensive Report Patient: Jimbo Gray Study ID: [id number] Gender: M : 1950 Age: 58 years Race: 1 Room: Bed: Height: 65 in ( 165.1 cm ) Study Date: September 18, 2008 Patient status: Outpatient Weight: 165 lb ( 75 kg ) Access. #: [id number] POC: Attending MD: Yumiko Hurst MD: Yumiko [...] by contrast ventriculography was 70 %. - There [...] was performed with a 2.5 x 20mm Daggett 2 RX balloon. A 3.0mm x 18mm [...] 16:38:34 Procedure Note Provider, Historical - 09/18/2008 [address] [address] [place] [address] [email or web address] Cardiac Catheterization Comprehensive Report Patient: Jimbo Gray Study ID: [id number] Gender: M : 1950 Age: 58 years Race: 1 Room: Bed: Height: 65 in ( 165.1 cm ) Study Date: September 18, 2008 Patient status: Outpatient Weight: 165 lb ( 75 kg ) Access. #: [id number] POC: Attending MD: Yumiko Hurst MD: Yumiko [...] Matt Jones MD FLUOROSCOPY ORDERABLES Final Result Performing Organization Address City/State/[facility] Co de Phone Number INTERFACE SYSTEM Refer to clinic/hospital department * (ABNORMAL) PROTIME-INR (09/18/2008 1:00 PM CDT) PROTIME 12.6(L) 12.7 - 15.1 Seconds [facility] INR 0.9 0.9 - 1.1 [facility] Comment: INR Therapeutic Range: Adult: 2.0 - 3.0 for pulmonary embolism or prophylaxis against venous thrombosis or systemic embolization. 2.0 - 3.0 for patients with tissue heart valves. 2.5 - 3.5 for patients with mechanical heart valves or post FL. Pediatric (12 years and under): 1.5 - 3.0 Although the target range in children is not well established, INR values of 1.5 - 3.0 are recommended for most patients. Higher values have been used in children with prosthetic cardiac valves and hereditary clotting disorders. (<3 days) therapeutic ranges have not been established. Blood specimen (specimen) 09/18/2008 1:00 PM CDT 09/18/2008 1:11 PM CDT us Matt Jones MD HEMATOLOGY ORDERABLES Final Result INTERFACE SYSTEM Refer to clinic/hospital department [facility] CLIA# [id number] [address] [place] [address] documented in this encounter Visit Diagnoses Diagnosis Unspecified essential hypertension documented in this encounter
[2024-10-07 09:07] VITALS: BP 134/75; PULSE 82; RESP 16; TEMP 36.1; O2SAT 99; BMI 25.8
[2024-10-07] MEDS: LACTATED RINGERS 1,000 ML 150 ML IV CONT (09:27)
--- NOTE | 2024-10-07 09:57 | WPDANESEPPF ---
Anes - Initial Pre Proc Eval Procedure: Operation Date: 10/07/24 10:30 Proposed Procedures p Colonoscopy - Don Garcia MD Date/Time: 10/07/24 09:57 Surgeon: Don Garcia MD Pre Op Diagnosis: hx of colon polyps Patient Data Age: 74 Gender: M Height: 1.65 m Weight: 70.4 kg Last Vital Signs Temp 36.1 C L 10/07/24 09:07 Pulse 82 10/07/24 09:07 Resp 16 10/07/24 09:07 BP 134/75 10/07/24 09:07 Pulse Ox 99 10/07/24 09:07 O2 Del Method Room Air 10/07/24 09:07 Allergies Allergy/AdvReac Type Severity Reaction Status Date / Time No Known Allergies Allergy Unknown Verified 10/07/24 09:16 Home Medications ?Medication ?Instructions ?Recorded ?Confirmed ?Type finasteride 5 mg tablet 5 mg PO DAILY 05/04/22 10/07/24 History sildenafil 100 mg tablet 100 mg PO .PRN #30 tabs 03/06/24 09/30/24 Rx aspirin 81 mg capsule 81 mg PO .QOD 04/01/24 10/07/24 History omeprazole 20 mg capsule,delayed 20 mg PO QAM #90 caps 05/08/24 10/07/24 Rx release multivitamin (Daily Multi-Vitamin 1 tablet PO DAILY 07/25/24 10/07/24 History tablet) lisinopril 20 mg tablet See Rx Instructions .Route 08/04/24 10/07/24 Rx .COMPLEX #90 tabs atorvastatin 40 mg tablet See Rx Instructions .Route 10/06/24 10/07/24 Rx .COMPLEX #90 tabs Patient hx anesthesia problems: none Family hx anesthesia problems: none Results Review: All pre-operative results and documents have been reviewed as part of the pre-operative evaluation. [facility] Past Medical History Medical History Essential (primary) hypertension Vitamin B12 deficiency BPH loc w/o ur obs/LUTS GERD without esophagitis Vitamin D deficiency Diverticulosis large intestine w/o perforation or abscess w/o bleeding Diverticulitis of small intestine with perforation without abscess or bleeding (~12/2021) History of coronary stenosis Cervical spondylosis Coronary artery disease involving [place] coronary artery of [place] heart Dyslipidemia Elevated PSA Erectile dysfunction Seizures (~12/2016) off keppra since 2021, no seizures Skin cancer (~2009) Surgical History Surgical History History of esophageal dilatation (~10/2021) x2 - 10/2021, 06/2023 History of colonoscopy with polypectomy History of left inguinal hernia repair (~2015) 2016 History of coronary artery stent placement (~2009) 2010 Family History Family History Mother Family history of cardiac disorder Father Family history of coronary artery disease Family history of cardiovascular disease Grandparent Family history of cardiovascular disease Social History Social History Smoking status: Never smoker Alcohol intake: current Drinks per week: 2 Substance use: never Substance use type: does not use Lack of Transportation: No Lack of Food: Never True Current Housing: I Have Housing Concerned About Future Housing: No Difficulty Paying Gas/Electric Bills: No Difficulty Paying for Meds: No Currently Unemployed: No Education: Bachelor's Degree Difficulty w/ Childcare or Family Care: No Living arrangements: with family Additional living arrangements comments: Occupation/Education: retired Gender identity (if verbalized by the patient): Male Sexual Orientation (if Verbalized by the Patient): Straight or Heterosexual Spiritual care concerns: No Agree to blood products: Yes Anes - Eval Final PreProcedure Day of Procedure 10/07/24 09:57 Patient weight: overweight Heart: regular rate and rhythm Lungs: clear to auscultation Airway: Mallampati scale class II Neurological: alert and oriented Last oral intake: >/= 8 hours ASA classification: III Emergent: no Anesthetic plan: proceed Anesthesia type and monitoring: general GIVS and standard monitoring Results Review: All pre-operative results and documents have been reviewed as part of the pre-operative evaluation. Informed Consent: The patient's anesthetic plan and its attendant risks and benefits were discussed with the patient/family/POA. Questions were solicited and answers provided to the satisfaction of the patient/family/POA.
--- NOTE | 2024-10-07 10:21 | P.HP_ITS ---
H&P: HPI History of Present Illness Date/Time: 10/07/24 10:21 Chief Complaint: History of colon polyps Narrative: The patient has a history of colonic polyps, the last colonoscopy was 7 years ago approximately. Review of Systems Review of Systems: All systems reviewed & are unremarkable except as noted in HPI and below PMFSH Past Medical History Medical History Essential (primary) hypertension Vitamin B12 deficiency BPH loc w/o ur obs/LUTS GERD without esophagitis Vitamin D deficiency Diverticulosis large intestine w/o perforation or abscess w/o bleeding Diverticulitis of small intestine with perforation without abscess or bleeding (~12/2021) History of coronary stenosis Cervical spondylosis Coronary artery disease involving [place] coronary artery of [place] heart Dyslipidemia Elevated PSA Erectile dysfunction Seizures (~12/2016) off keppra since 2021, no seizures Skin cancer (~2009) Surgical History Surgical History History of esophageal dilatation (~10/2021) x2 - 10/2021, 06/2023 History of colonoscopy with polypectomy History of left inguinal hernia repair (~2015) 2016 History of coronary artery stent placement (~2009) 2009 Family History Family History Mother Family history of cardiac disorder Father Family history of coronary artery disease Family history of cardiovascular disease Grandparent Family history of cardiovascular disease Social History Social History Smoking status: Never smoker Alcohol intake: current Drinks per week: 2 Substance use: never Substance use type: does not use Lack of Transportation: No Lack of Food: Never True Current Housing: I Have Housing Concerned About Future Housing: No Difficulty Paying Gas/Electric Bills: No Difficulty Paying for Meds: No Currently Unemployed: No Education: Bachelor's Degree Difficulty w/ Childcare or Family Care: No Living arrangements: with family Additional living arrangements comments: Occupation/Education: retired Gender identity (if verbalized by the patient): Male Sexual Orientation (if Verbalized by the Patient): Straight or Heterosexual Spiritual care concerns: No Agree to blood products: Yes Meds Home Medications and Allergies Home Medications ?Medication ?Instructions ?Recorded ?Confirmed ?Type finasteride 5 mg tablet 5 mg PO DAILY 05/04/22 10/07/24 History sildenafil 100 mg tablet 100 mg PO .PRN #30 tabs 03/06/24 09/30/24 Rx aspirin 81 mg capsule 81 mg PO .QOD 04/01/24 10/07/24 History omeprazole 20 mg capsule,delayed 20 mg PO QAM #90 caps 05/08/24 10/07/24 Rx release multivitamin (Daily Multi-Vitamin 1 tablet PO DAILY 07/25/24 10/07/24 History tablet) lisinopril 20 mg tablet See Rx Instructions .Route 08/04/24 10/07/24 Rx .COMPLEX #90 tabs atorvastatin 40 mg tablet See Rx Instructions .Route 10/06/24 10/07/24 Rx .COMPLEX #90 tabs Allergies Allergy/AdvReac Type Severity Reaction Status Date / Time No Known Allergies Allergy Unknown Verified 10/07/24 09:16 Vital Signs Vital Signs - 24 hr 10/07/24 09:07 Temperature 97.0 F L Pulse Rate 82 Respiratory Rate 16 Blood Pressure 134/75 Pulse Oximetry 99 Oxygen Delivery Room Air Exam Const: General: cooperative and healthy appearing Resp: Effort & Inspection: normal respiratory effort and able to speak in complete sentences Auscultation: clear to auscultation bilaterally Cardio: Rate: regular rate Rhythm: regular rhythm GI: Inspection: normal to inspection GI Palp: No No hepatosplenomegaly present Auscultation: normal bowel sounds Rectal Exam: deferred Skin: General skin exam: normal color Psych: Appearance: grossly normal Mental Status: mental status grossly normal Assessment and Plan Assessment and plan (1) History of colonic polyps: Code(s): Z86.0100 - Personal history of colon polyps, unspecified Status: Acute Assessment and Plan: The patient is deemed a good candidate for the procedure. Consent signed. Will proceed.
[2024-10-07 10:53] VITALS: BP 122/75; PULSE 67; RESP 18; O2SAT 100
[2024-10-07 11:03] VITALS: BP 122/72; PULSE 69; RESP 16; O2SAT 100
[2024-10-07 11:13] VITALS: BP 135/86; PULSE 72; RESP 18; O2SAT 100
== END 2024-10-07 11:32 | disposition home or self-care (01) ==
PROVIDERS: PCP Family Medicine; Referring Provider Family Medicine; Visit Provider Internal Medicine Gastroenterology
PROC: 0DJD8ZZ Inspection of Lower Intestinal Tract, Via Natural or Artificial Opening Endoscopic (ICD-10-PCS; CPT 45378; principal; 2024-10-07 10:30)
DX: Z12.11 Encounter for screening for malignant neoplasm of colon (principal); D12.3 Benign neoplasm of transverse colon; D12.5 Benign neoplasm of sigmoid colon; K64.8 Other hemorrhoids; K57.30 Diverticulosis of large intestine without perforation or abscess without bleeding; I10 Essential (primary) hypertension; E78.5 Hyperlipidemia, unspecified; E53.8 Deficiency of other specified B group vitamins; N40.0 Benign prostatic hyperplasia without lower urinary tract symptoms; K21.9 Gastro-esophageal reflux disease without esophagitis; E55.9 Vitamin D deficiency, unspecified; M43.02 Spondylolysis, cervical region; I25.10 Atherosclerotic heart disease of native coronary artery without angina pectoris; N52.9 Male erectile dysfunction, unspecified; R56.9 Unspecified convulsions; Z79.82 Long term (current) use of aspirin; Z98.890 Other specified postprocedural states; Z95.5 Presence of coronary angioplasty implant and graft; Z85.828 Personal history of other malignant neoplasm of skin; Z87.19 Personal history of other diseases of the digestive system; Z86.79 Personal history of other diseases of the circulatory system; Z82.49 Family history of ischemic heart disease and other diseases of the circulatory system
CPT/HCPCS: 45385; 88305; J2003; J2704; J7120

== ENCOUNTER 2025-05-05 07:55 | Outpatient (CLI) | payer MEDICARE, SELFPAY ==
--- OUTSIDE RECORDS SUMMARY | 2025-05-05 08:01 | XMS_ITS | Clinical Summary ---
Author Organization [facility] Address [address] [facility] [place] [address] Care Team Providers Care Offshore Wind Operations Manager Name Role Phone Peter Hernández MD Primary Care Provider [phone] Source Comments [facility],non-owned Affiliates and Associated Physician Practices is amultiple site organization consisting of ambulatory clinics and hospital sitesin [place], [place], [place] and [place]. This disclosure is being madepursuant to the Care Everywhere program and may not contain all information available regarding this patient. 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 Gender Identity Not on file Sexual Orientation Not on file Plan of Treatment Health Maintenance Due Date Last Done Comments HEPATITIS C SCREENING 01/28/1966 DTAP/TDAP/TD VACCINES (1 - Tdap) 02/01/1967 PNEUMOCOCCAL VACCINE 50+ (1 of 1 - PCV) 02/01/1998 ZOSTER VACCINE (1 of 2) 02/01/1998 Respiratory Syncytial Virus (RSV) Vaccine Pt: or over 60 yrs (1 - 1-dose 75+ series) 02/01/2023 DEPRESSION SCREENING 07/02/2024 MEDICARE AWV CALENDAR YEAR 2024 COVID-19 VACCINE (1 - 2024-2 5 season) 2025 INFLUENZA VACCINE (#1) 2025 HEPATITIS B VACCINE Aged Out No [...] Priority Date/Time Associated Diagnosis Comments DERMATOPATHOLOGY Routine 03/10/2025 9:00 AM CDT Neoplasm of uncertain behavior of skin from Last 3 Months Results * DERMATOPATHOLOGY (03/10/2025 9:00 AM CDT) Case Report Dermatopathology Report Case: [id number] Authorizing Provider: Safia Rodríguez DO Collected: 03/10/2025 09:00 AM Ordering Location: [facility] - Received: 03/10/2025 01:40 PM DermPath Lab Pathologist: Vanesa Hassan MD Specimen: Skin, left forehead 4:07 PM CDT DERMATOPATHOLOGY LABORATORY Final Diagnosis Specimen A. SKIN, left forehead: HYPERPLASTIC (HYPERTROPHIC) ACTINIC KERATOSIS; EXTENDING TO THE BASE OF THE SPECIMEN (L57.0) (see microscopic description and comment) 4:07 PM CDT DERMATOPATHOLOGY LABORATORY at 1607 CDT Clinical History Neoplasm of Uncertain Behavior 4:07 PM CDT DERMATOPATHOLOGY LABORATORY Gross Description Specimen A: Received is one formalin filled container labeled with the patient's name and designated left forehead. The specimen consists of a shave biopsy measuring 5x4x1 mm. Jar 0. 4:07 PM CDT DERMATOPATHOLOGY LABORATORY Microscopic Description Specimen A. SKIN, left forehead: There is hyperkeratosis alternating with parakeratosis. There is epidermal hyperplasia with disorderly maturation of keratinocytes with nuclear pleomorphism confined to the lower half of the epidermis. This process extends to the base of the specimen. COMMENT: A squamous cell carcinoma cannot be ruled out. 5 4:07 PM CDT DERMATOPATHOLOGY LABORATORY Disclaimer An external and internal positive and negative controls are appropriate for the histochemical, immunohistochemical and immunofluorescence stain(s) in this case (if any), except where stated explicitly. The performance characteristics of the stain(s) cited in this report were developed and its performance characteristic determined by the Dermatopathology Laboratory at [facility], directed by Dr. Jc Ibarra. These tests need not be, and therefore are not, approved by the [place] Food and Drug Administration. The tests are used for clinical purposes. Billing Codes Specimen Charges Stain Charges 33316 1 5 4:07 PM CDT DERMATOPATHOLOGY LABORATORY Embedded Images 4:07 PM CDT DERMATOPATHOLOGY LABORATORY Pathology/Cytolo gy TISSUE SPECIMEN FROM SKIN / Unknown 03/10/2025 9:00 AM CDT 03/10/2025 1:40 PM CDT us Safia Rodríguez DO LAB - PATHOLOGY/CYTOLOGY ORDERABLES Final Result DERMATOPATHOLOGY LABORATORY [facility] - Department of Dermatology Formerly [facility] Medicine [address] [place] [address], [address] [place] [address], [facility] [place] [phone] from Last 3 Months Insurance [employer] [facility] Care Address: [facility] [id number] [place] [address] [employer] MEDICARE ADV SELF PAY NO INSURANCE Member Subscriber Plan / Payer (Ef fective for All Dates) Name:Jimbo Roldan Member ID:Not on file Relation to Subscriber:Not on file Name:JIMBO ROLDAN Subscriber ID:Not on file (Home) Address: [address] [place], [place] [address] Payer ID:Not on file Group ID:Not on file Type:Self Pay Address: [place], [place] [employer] MEDICARE ADV SELF PAY NO INSURANCE Member Subscriber Plan / Payer (Ef fective for All Dates) Name:Jimbo Roldan Member ID:Not on file Relation to Subscriber:Not on file Name:JIMBO ROLDAN Subscriber ID:Not on file (Home) Address: [address] [place] [id number] Payer ID:Not on file Group ID:Not on file Type:Self Pay Address: [place], [place] Care Teams Offshore Wind Operations Manager Relationship Specialty Start Date End Date Peter Hernández MD [address] [place] [address] PCP - General 11/10/09
--- OUTSIDE RECORDS SUMMARY | 2025-05-05 08:01 | XMS_ITS | Encounter Summary ---
Author Organization [facility] Address [address] [facility] [place] [address] Care Team Providers Care Dehydrator Name Role Phone Peter Hernández MD Primary Care Provider [phone] Encounter Details Date Type Department Care Team (Late st Contact Info) Description 03/10/2025 Lab Requisition [facility] - DermPath Lab [address] [facility] [place] [id number] Safia Rodríguez DO [address] [facility] [address] [place] [address] Neoplasm of uncertain behavior of skin Social History Tobacco Use Types Packs/Day Years Used Date Smoking Tobacco: Never Assessed Sex and Gender Information Value Date Recorded Sex Assigned at Not on file 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 Gender Identity Not on file Sexual Orientation Not on file documented as of this encounter Plan of Treatment Not on file documented as of this encounter Procedures Procedure Name Priority Date/Time Associated Diagnosis Comments DERMATOPATHOLOGY Routine 03/10/2025 9:00 AM CDT Neoplasm of uncertain behavior of skin documented in this encounter Results * DERMATOPATHOLOGY (03/10/2025 9:00 AM CDT) Case Report Dermatopathology Report Case: [id number] Authorizing Provider: Safia Rodríguez DO Collected: 03/10/2025 09:00 AM Ordering Location: [facility] - Received: 03/10/2025 01:40 PM DermPath Lab Pathologist: Vanesa Hassan MD Specimen: Skin, left forehead 4:07 PM T DERMATOPATHOLOGY LABORATORY Final Diagnosis Specimen A. SKIN, left forehead: HYPERPLASTIC (HYPERTROPHIC) ACTINIC KERATOSIS; EXTENDING TO THE BASE OF THE SPECIMEN (L57.0) (see microscopic description and comment) 4:07 PM T DERMATOPATHOLOGY LABORATORY at 1607 CDT Clinical History Neoplasm of Uncertain Behavior 4:07 PM CDT DERMATOPATHOLOGY LABORATORY Gross Description Specimen A: Received is one formalin filled container labeled with the patient's name and designated left forehead. The specimen consists of a shave biopsy measuring 5x4x1 mm. Jar 0. 4:07 PM T DERMATOPATHOLOGY LABORATORY Microscopic Description Specimen A. SKIN, left forehead: There is hyperkeratosis alternating with parakeratosis. There is epidermal hyperplasia with disorderly maturation of keratinocytes with nuclear pleomorphism confined to the lower half of the epidermis. This process extends to the base of the specimen. COMMENT: A squamous cell carcinoma cannot be ruled out. 4:07 PM T DERMATOPATHOLOGY LABORATORY Disclaimer An external and internal positive and negative controls are appropriate for the histochemical, immunohistochemical and immunofluorescence stain(s) in this case (if any), except where stated explicitly. The performance characteristics of the stain(s) cited in this report were developed and its performance characteristic determined by the Dermatopathology Laboratory at [facility], directed by Dr. Jc Ibarra. These tests need not be, and therefore are not, approved by the [place] Food and Drug Administration. The tests are used for clinical purposes. Billing Codes Specimen Charges Stain Charges 82662 1 4:07 PM CDT DERMATOPATHOLOGY LABORATORY Embedded Images 4:07 PM CDT DERMATOPATHOLOGY LABORATORY Pathology/Cytolo gy TISSUE SPECIMEN FROM SKIN / Unknown 03/10/2025 9:00 AM CDT 03/10/2025 1:40 PM CDT us Safia Rodríguez DO LAB - PATHOLOGY/CYTOLOGY ORDERABLES Final Result DERMATOPATHOLOGY LABORATORY [facility] - Department of Dermatology [address] [phone] documented in this encounter Visit Diagnoses Diagnosis Neoplasm of uncertain behavior of skin documented in this encounter Care Teams Dehydrator Relationship Specialty Start Date End Date Peter Hernández MD [address] [place] [address] PCP - General 11/10/09 documented as of this encounter
--- OUTSIDE RECORDS SUMMARY | 2025-05-05 08:01 | XMS_ITS | Encounter Summary ---
Author Organization [facility] Address [address] [place] [address] Care Team Providers Care Dermatology Sales Representative Name Role Phone Peter Hernández MD Primary Care Provider [phone] Encounter Details Date Type Department Care Team (Late st Contact Info) Description 09/29/2022 Lab Requisition [facility] DermPath Lab [address] [place] [address] [place] [address] Social History Tobacco Use Types Packs/Day Years Used Date Smoking Tobacco: Never Assessed Sex and Gender Information Value Date Recorded Sex Assigned at Not on file 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 Gender Identity Not on file Sexual Orientation Not on file documented as of this encounter Plan of Treatment Not on file documented as of this encounter Procedures Procedure Name Priority Date/Time Associated Diagnosis Comments DERMATOPATHOLOGY Routine 09/27/2022 3:33 AM CDT documented in this encounter Results * DERMATOPATHOLOGY (09/27/2022 3:33 AM CDT) Case Report Dermatopathology Report Case: [id number] Authorizing Provider: Ryan Shelby MD Collected: 09/27/2022 03:33 AM Ordering Location: [facility] Care DermPath Lab Received: 09/29/2022 07:13 AM Pathologist: Vanesa Hassan MD Specimen: Skin, right med cheek 11:31 AM CDT DERMATOPATHOLOGY LABORATORY Final Diagnosis Specimen A. SKIN, right med cheek: EPIDERMAL AND DERMAL NECROSIS (L98.499) (see microscopic description) 3 11:31 AM CDT DERMATOPATHOLOGY LABORATORY at 1131 CDT Clinical History R/O SCC HAK 3 11:31 [...] in the sections examined. 3 11:31 AM T DERMATOPATHOLOGY LABORATORY Disclaimer An external and internal positive and negative controls are appropriate for the histochemical, immunohistochemical and immunofluorescence stain(s) in this case (if any), except where stated explicitly. The performance characteristics of the stain(s) cited in this report were developed and its performance characteristic determined by the Dermatopathology Laboratory at [facility], directed by Dr. Jc Ibarra. These tests need not be, and therefore are not, approved by the [place] Food and Drug Administration. The tests are used for clinical purposes. Billing Codes Specimen Charges Stain Charges 70374 1 3 11:31 AM CDT DERMATOPATHOLOGY LABORATORY Embedded Images 3 11:31 AM CDT DERMATOPATHOLOGY LABORATORY Pathology/Cytolo gy TISSUE SPECIMEN FROM SKIN / Unknown 09/27/2022 3:33 AM CDT 09/29/2022 7:13 AM CDT Ryan Shelby MD LAB - PATHOLOGY/CYTOLOGY ORD ERABLES Final Result DERMATOPATHOLOGY LABORATORY [facility] - Department of Dermatology [address], [address] [phone] documented in this encounter Visit Diagnoses Not on filedocumented in this encounter Care Teams Dermatology Sales Representative Relationship Specialty Start Date End Date Peter Hernández MD [address] [place], [place] [id number] PCP - General 11/10/09 documented as of this encounter
--- OUTSIDE RECORDS SUMMARY | 2025-05-05 08:01 | XMS_ITS | Encounter Summary ---
Author Organization [facility] Address [address] [place] [address] Care Team Providers Care Heat And Vent Aircraft Mechanic Name Role Phone Peter Hernández MD Primary Care Provider [phone] Encounter Details Date Type Department Care Team (Late st Contact Info) Description 08/28/2024 Lab Requisition [facility] - DermPath Lab [address] [facility] [place] [id number] Safia Rodríguez DO [address] [facility] [address] [place] [address] Social History Tobacco Use Types Packs/Day Years Used Date Smoking Tobacco: Never Assessed Sex and Gender Information Value Date Recorded Sex Assigned at Not on file Legal Sex Male 5:44 PM PAID INTERN Gender Identity Not on file Sexual Orientation Not on file documented as of this encounter Plan of Treatment Not on file documented as of this encounter Procedures Procedure Name Priority Date/Time Associated Diagnosis Comments DERMATOPATHOLOGY Routine 08/26/2024 12:0 0 AM PAID INTERN documented in this encounter Results * DERMATOPATHOLOGY (08/26/2024 12:00 AM PAID INTERN) Case Report Dermatopathology Report Case: [id number] Authorizing Provider: Safia Rodríguez DO Collected: 08/26/2024 12:00 AM Ordering Location: [facility] - Received: 08/28/2024 07:15 AM DermPath Lab Pathologist: Rhonda Pardo MD Specimen: Skin, right shoulder 1:49 PM PAID INTERN DERMATOPATHOLOGY LABORATORY Final Diagnosis Specimen A. 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 The specimen consists of a shave biopsy measuring 8x4x1 mm. Jar 0. 1:49 PM [facility] DERMATOPATHOLOGY LABORATORY Microscopic Description Specimen A. SKIN, right shoulder: Within the dermis there are oval, spindle-shaped and dendritic melanocytes with melanophages. 1:49 PM [facility] DERMATOPATHOLOGY LABORATORY Disclaimer An external and internal positive and negative controls are appropriate for the histochemical, immunohistochemical and immunofluorescence stain(s) in this case (if any), except where stated explicitly. The performance characteristics of the stain(s) cited in this report were developed and its performance characteristic determined by the Dermatopathology Laboratory at [facility], directed by Dr. Jc Ibarra. These tests need not be, and therefore are not, approved by the [place] Food and Drug Administration. The tests are used for clinical purposes. Billing Codes Specimen Charges Stain Charges 96306 1 1:49 PM [facility] DERMATOPATHOLOGY LABORATORY Embedded Images 1:49 PM [facility] DERMATOPATHOLOGY LABORATORY Pathology/Cytolog y TISSUE SPECIMEN FROM SKIN / Unknown 08/26/2024 08/28/2024 7:15 AM [facility] us Safia Rodríguez DO LAB - PATHOLOGY/CYTOLOGY ORDERABLES Final Result DERMATOPATHOLOGY LABORATORY [facility] - Department of Dermatology [address], [address] [phone] documented in this encounter Visit Diagnoses Not on filedocumented in this encounter Care Teams Heat And Vent Aircraft Mechanic Relationship Specialty Start Date End Date Peter Hernández MD [address] [place] [address] PCP - General 11/10/09 documented as of this encounter
--- OUTSIDE RECORDS SUMMARY | 2025-05-05 08:02 | XMS_ITS | Encounter Summary ---
Author Organization [facility] Address [address] [place] [address] Care Team Providers Care Prior Authorization Technician Name Role Phone Unavailable Primary Care Provider Unavailabl e Encounter Details Date Type Department Care Team (Latest Contact Info) Description 09/17/2008 Outpatient Historical HIS CARD SOFTBALL COACH Matt Jones MD [address] [facility] [address] [place] [address] Unspecified Essential Hypertension Social History Tobacco Use Types Packs/Day Years Used Date Smoking Tobacco: Never Assessed Sex and Gender Information Value Date Recorded Sex Assigned at Not on file Legal Sex Male 3:17 AM CONE CLEANER Gender Identity Not on file Sexual Orientation [...] 09/18/2008 5:04 PM CDT [facility] [address] [place] [address] [email or web address] Cardiac Catheterization Comprehensive Report Patient: Jimbo Gray Study ID: [id number] Gender: M : 1950 Age: 58 years Race: 1 Room: Bed: Height: 65 in ( 165.1 cm ) Study Date: September 18, 2008 Patient status: Outpatient Weight: 165 lb ( 75 kg ) Access. #: [id number] POC: Attending MD: Yumiko Hurst MD: Yumiko [...] was performed with a 2.5 x 20mm [place] 2 RX balloon. A 3.0mm x 18mm [...] 16:38:34 Procedure Note Provider, Historical - 09/18/2008 [address] [address] [place] [address] [email or web address] Cardiac Catheterization Comprehensive Report Patient: Jimbo Gray Study ID: [id number] Gender: M : 1950 Age: 58 years Race: 1 Room: Bed: Height: 65 in ( 165.1 cm ) Study Date: September 18, 2008 Patient status: Outpatient Weight: 165 lb ( 75 kg ) Access. #: [id number] POC: Attending MD: Yumiko Hurst MD: Yumiko [...] FLUOROSCOPY ORDERABLES Final Result Performing Organization Address City/State/[facility] Co de Phone Number INTERFACE SYSTEM Refer to clinic/hospital department * (ABNORMAL) PROTIME-INR (09/18/2008 1:00 PM CDT) PROTIME 12.6(L) 12.7 - 15.1 Seconds [facility] INR 0.9 0.9 - 1.1 [facility] Comment: INR Therapeutic Range: Adult: 2.0 - 3.0 for pulmonary embolism or prophylaxis against venous thrombosis or systemic embolization. 2.0 - 3.0 for patients with tissue heart valves. 2.5 - 3.5 for patients with mechanical heart valves or post ID. Pediatric (12 years and under): 1.5 - [...] Result INTERFACE SYSTEM Refer to clinic/hospital department [facility] CLIA# [id number] [address] [place] [address] documented in this encounter Visit Diagnoses Diagnosis Unspecified essential hypertension documented in this encounter
--- OUTSIDE RECORDS SUMMARY | 2025-05-05 08:02 | XMS_ITS | Encounter Summary ---
Author Organization [facility] Address [address] [place] [address] Care Team Providers Care Technology Director Name Role Phone Peter Hernández MD Primary Care Provider [phone] Gris Ward MD Primary Care Provider Encounter Details Date Type Department Care Team (Late st Contact Info) Description 11/09/2016 Orders Only [facility] Health Information Management [address] [place] [id number] Scanning, Provider Social History Tobacco Use Types Packs/Day Years Used Date Smoking Tobacco: Never Assessed Alcohol Use Standard Drinks/Week Comments Yes 0 (1 standard drink = 0.6 oz pur e alcohol) Sex and Gender Information Value Date Recorded Sex Assigned at Not on file Legal Sex Male 1:59 AM PUSHCART PEDDLER Gender Identity Not on file Sexual Orientation Not on file documented as of this encounter Plan of Treatment Not on file documented as of this encounter Procedures Procedure Name Priority Date/Time Associated Diagnosis Comments SCAN - LABS 11/09/2016 documented in this encounter Results * SCAN - LABS (11/09/2016) us Provider Scanning Final Result documented in this encounter Visit Diagnoses Not on filedocumented in this encounter Care Teams Technology Director Relationship Specialty Start Date End Date Peter Hernández MD [address] [place] [address] [place] [address] PCP - General 03/13/13 03/03/20 Gris Ward MD [address] [place] [address] PCP - General Family Practice 03/04/20 documented as of this encounter
--- OUTSIDE RECORDS SUMMARY | 2025-05-05 08:02 | XMS_ITS | Encounter Summary ---
Author Organization [facility] Address [address] [facility] [place] [address] Care Team Providers Care Front End Application Developer Name Role Phone Peter Hernández MD Primary Care Provider [phone] Encounter Details Date Type Department Care Team (Late st Contact Info) Description 05/03/[address] 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 DermPath Lab Received: 05/03/2022 01:09 PM Pathologist: Marci Pardo MD Specimens: A) - Skin, left frontal scalp B) - Skin, left forehead C) - Skin, lat to left ala on cheek D) - Skin, right lateral cheek 2 6:02 PM T DERMATOPATHOLOGY LABORATORY Final Diagnosis Specimen A. SKIN, left frontal scalp: ACTINIC KERATOSIS, LICHENOID (L57.0) Specimen B. SKIN, left forehead: ACTINIC KERATOSIS (L57.0) (see microscopic description) Specimen C. SKIN, lat to left ala on cheek: BASAL CELL CARCINOMA, KERATOTIC TYPE (C44.319) Specimen D. 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 The specimen consists of a shave biopsy measuring 8e4j3nb. Jar 0. Specimen B: Received is one formalin filled container labeled with the patient's name and designated left forehead. The specimen consists of a shave biopsy measuring 5z0u0ju. Jar 0. Specimen C: Received is one formalin filled container labeled with the patient's name and designated lat to left ala on cheek. The specimen consists of a shave biopsy measuring 9h1t6cx. Jar 0. Specimen D: Received is one formalin filled container labeled with the patient's name and designated right lateral cheek. The specimen consists of a shave biopsy measuring 0e6b0iv. Jar 0. 2 6:02 PM T DERMATOPATHOLOGY LABORATORY Microscopic Description Specimen [...] characteristic determined by the Dermatopathology Laboratory at [facility], directed by Dr. Jc Ibarra. These tests need not be, and therefore are not, approved by the [place] Food and Drug Administration. The tests are used for clinical purposes. Billing Codes Specimen Charges Stain Charges 33694 94013 [address]92[address] 25444 1 1 1 1 76085 1 2 6:02 PM CDT DERMATOPATHOLOGY LABORATORY [...] PM CDT Ryan Shelby MD LAB - PATHOLOGY/CYTOLOGY ORD ERABLES Final Result DERMATOPATHOLOGY LABORATORY [facility] - Department of Dermatology [address], [address] [phone] documented in this encounter Visit Diagnoses Not on filedocumented in this encounter Care Teams Front End Application Developer Relationship Specialty Start Date End Date Malench, Peter E, MD [address] [place] [address] PCP - General 11/10/09 documented as of this encounter
--- OUTSIDE RECORDS SUMMARY | 2025-05-05 08:02 | XMS_ITS | Clinical Summary ---
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
--- OUTSIDE RECORDS SUMMARY | 2025-05-05 08:02 | XMS_ITS | Clinical Summary ---
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 Gender Identity Not on file Sexual Orientation [...] 1:31 PM CDT Height 165.1 cm (5' 5) 11/14/2022 1:31 PM CDT Body Mass Index 26.79 11/14/2022 1:31 PM CDT Plan of Treatment Health Maintenance Due Date Last Done Comments Depression Screening 1950 Fall Risk Assessment 1950 Hepatitis C Screening 1950 Hepatitis B Screening 02/01/1966 Zoster Vaccine (1 of 2) 02/01/1998 Well Visit 65+ 02/01/2013 Pneumococcal vaccine 65+ (2 of 2 - PCV) 07/12/2016 0 07/12/2015 Influenza Vaccine (#1) 2025 DTaP/Tdap/Td Vaccine (2 - Td or Tdap) 07/12/202505/2016, 07/02/1998 Insurance [facility] [employer] MEDICARE GOLD Care Teams Newspaper Peddler Relationship Specialty Start Date End Date Gris Ward MD PCP - General Family Practice 03/04/20
[2025-05-05 13:09] LABS: Hematocrit 46.9 % (42.0-52.0); Hemoglobin 15.5 g/dL (14.0-18.0); Immature Granulocyte Percent A 0.4 % (0-0.5); Lymphocytes Absolute Auto 1.78 K/mm3 (0.9-3.2); Mean Corpuscular HGB Conc 33.0 g/dl (32-36); Mean Corpuscular Hemoglobin 30.9 pg (26-34); Mean Corpuscular Volume 93.6 fl (80-100); Nucleated Red Blood Cells Absolute Auto 0.000 K/mm3 (0.0-0.012); Nucleated Red Blood Cells Perc 0.0 % (0.0-0.2); Platelet Count Result 235 k/mm3 (150-375); Red Blood Count 5.01 M/mm3 (4.6-6.20); White Blood Count 8.5 K/mm3 (4.5-10.0)
[2025-05-05 13:17] LABS: Alanine Aminotransferase 20 U/L (6-50); Albumin Level 4.4 g/dL (3.5-5.1); Alkaline Phosphatase 84 U/L (38-126); Anion Gap 7 mmol/L (4-12); Aspartate Amino Transferase 37 U/L (17-59); Bilirubin,Total 1.0 mg/dL (0.2-1.3); Blood Urea Nitrogen 8 mg/dL (9-20); Calcium 9.0 mg/dL (8.4-10.2); Carbon Dioxide 28 mmol/L (22-30); Chloride 103 mmol/L (98-107); Cholesterol 146 mg/dL (0-200); Estimated Glomerular Filt Rate > 60; Glucose 87 mg/dL (65-110); HDL Direct 39 mg/dL; Potassium 4.8 mmol/L (3.4-5.0); Sodium 138 mmol/L (137-145); Total Protein 7.1 g/dL (6.3-8.2); Triglycerides 116 mg/dL (<150)
[2025-05-05 13:56] LABS: Thyroid Stimulating Hormone Reflex 2.240 uIU/mL (0.465-4.68)
[2025-05-05 16:08] LABS: Vitamin B12 316.0 pg/mL (239-931)
[2025-05-05 20:35] LABS: Hemoglobin A1C 5.5 % (<5.7)
== END 2025-05-05 07:56 | disposition home or self-care (01) ==
LOC: ANHGOSHLAB 07:56
PROVIDERS: PCP Family Medicine; Visit Provider Family Medicine
DX: E78.5 Hyperlipidemia, unspecified (principal); I10 Essential (primary) hypertension; R73.9 Hyperglycemia, unspecified; E53.8 Deficiency of other specified B group vitamins; E55.9 Vitamin D deficiency, unspecified
CPT/HCPCS: 36415; 80053; 80061; 82306; 82607; 83036; 84443; 85025